=== PATIENT | male | born 1965 | race Caucasian/White ===

== ENCOUNTER 2022-08-05 10:46 | Inpatient (IN) | payer OTHER ==
[2022-08-05] MEDS ORDERED: CEFEPIME HCL/D5W 1 GM/50 ML BAG IVPB ONE (11:44)
[2022-08-05] MEDS ORDERED: VANCOMYCIN 1 GM in D5W (PRE-DOCKED) 1,000 MG/250 ML IVPB ONE (11:44)
[2022-08-05] MEDS ORDERED: VANCOMYCIN/WATER FOR INJ (PEG) 1,000 MG/200 ML BAG IVPB ONE (13:07)
[2022-08-05] MEDS ORDERED: CEFEPIME 1 GM/100 ML BAG IVPB ONE (13:08)
[2022-08-05 13:16] LABS: EPI CELLS >36 /uL (0-25.1); HYALINE CASTS 5 /uL (0-3.1); PH,URINE 5.5 (5.0-8.0); URINE APPEARANCE TURBID; URINE BACTERIA 29 /uL (0-1359); URINE BILIRUBIN 3+ (NEGATIVE); URINE COLOR DK YELLOW; URINE GLUCOSE (UA) NEGATIVE (NEGATIVE); URINE KETONE NEGATIVE (NEGATIVE); URINE LEUK ESTERASE 1+ (NEGATIVE); URINE NITRITE NEGATIVE (NEGATIVE); URINE PROTEIN 2+ (NEGATIVE); URINE UROBILINOGEN 0.2 mg/dL (0.2-1.0); URINE WBC 192 /uL (0-25.8)
[2022-08-05 13:40] LABS: URINE CRYSTALS NON /hpf; URINE RBC 139 /uL (0-23.9); YEAST NON (NEGATIVE)
[2022-08-05 13:41] LABS: VENOUS BASE EXCESS -0.4 mmol/L (-2-2); VENOUS O2 SATURATION 65.2 % (70-80); VENOUS PCO2 42.3 mmHg (38-52); VENOUS PH 7.383 (7.310-7.410)
[2022-08-05 13:44] LABS: BASO % 2.7 % (0-2.0); EOS % 1.9 % (0-4.5); HEMATOCRIT 23.6 % (35.4-49); HEMOGLOBIN 7.9 GM/dL (11.7-16.9); LYMPH % 9.8 % (8-40); MCH 32.3 pg (25.7-33.7); MCHC 33.6 g/dl (32.0-35.9); MEAN PLT VOLUME 7.5 fl (7.5-11.1); MONO % 9.6 % (3.8-10.2); PLATELET COUNT 237 10^3/uL (134-434); RBC 2.45 M/mm3 (4.00-5.60); RDW 19.1 % (11.9-15.9); WHITE BLOOD COUNT 12.8 K/mm3 (4.0-10.0)
[2022-08-05 13:50] LABS: INR 1.74 (0.83-1.09); PROTHROMBIN TIME (PATIENT) 20.1 SEC (9.7-13.0)
[2022-08-05 13:53] LABS: ACTIVATED PTT 41.3 SECONDS (25.2-36.5)
[2022-08-05 14:23] LABS: CHLORIDE 100 mmol/L (98-107); SODIUM 135 mmol/L (136-145)
[2022-08-05 14:25] LABS: CALCIUM 8.5 mg/dL (8.5-10.1)
[2022-08-05 14:26] LABS: ALBUMIN 1.3 g/dl (3.4-5.0); ANION GAP 11 MMOL/L (8-16); BLOOD UREA NITROGEN 56.3 mg/dL (7-18); CO2 25 mmol/L (21-32); GLUCOSE,RANDOM 79 mg/dL (74-106)
[2022-08-05 14:29] LABS: CREATININE 5.8 mg/dL (0.55-1.3); SGOT/AST 97 U/L (15-37); SGPT/ALT 60 U/L (13-61)
[2022-08-05 14:30] LABS: TOT PROT 6.2 g/dl (6.4-8.2)
[2022-08-05 14:32] LABS: ALK PHOS 105 U/L (45-117)
[2022-08-05 14:37] LABS: BILIRUBIN,TOTAL 16.9 mg/dL (0.2-1)
[2022-08-05 14:53] LABS: BILIRUBIN,DIRECT 13.6 mg/dL (0.0-0.2)
[2022-08-05] MEDS ORDERED: APIXABAN 5 MG TABLET ONE (21:59)
[2022-08-05] MEDS ORDERED: LACTULOSE 20 GM/30 ML UDC (FOR ORAL USE ONLY) ONE (21:59)
[2022-08-05] MEDS ORDERED: traMADol HCL 50 MG TABLET ONE (22:12)
[2022-08-05] MEDS: MIDODRINE HCL 5 MG TABLET PEG SCH (22:26)
[2022-08-05] MEDS: CHOLESTYRAMINE/SUCROSE 4 GM PACKET GT SCH (22:26)
[2022-08-05] MEDS: APIXABAN 5 MG TABLET PEG SCH (22:26)
[2022-08-05] MEDS: LACTULOSE 20 GM/30 ML UDC (FOR ORAL USE ONLY) PEG SCH (22:26)
[2022-08-05] MEDS: traMADol HCL 50 MG TABLET PEG SCH ×2 (22:26→22:27)
[2022-08-05] MEDS: RIFAXIMIN 550 MG TABLET GT SCH (22:27)
[2022-08-06 09:22] LABS: BASO % 0.5 % (0-2.0); EOS % 1.5 % (0-4.5); HEMATOCRIT 23.7 % (35.4-49); HEMOGLOBIN 7.9 GM/dL (11.7-16.9); LYMPH % 11.6 % (8-40); MCH 32.4 pg (25.7-33.7); MCHC 33.5 g/dl (32.0-35.9); MEAN CELL VOLUME 96.5 fl (80-96); MEAN PLT VOLUME 7.6 fl (7.5-11.1); MONO % 9.6 % (3.8-10.2); NEUT % 76.8 % (42.8-82.8); PLATELET COUNT 247 10^3/uL (134-434); RBC 2.45 M/mm3 (4.00-5.60); RDW 18.1 % (11.9-15.9); WHITE BLOOD COUNT 11.6 K/mm3 (4.0-10.0)
[2022-08-06 09:46] LABS: CHLORIDE 103 mmol/L (98-107); SODIUM 137 mmol/L (136-145)
[2022-08-06 09:53] LABS: CALCIUM 8.4 mg/dL (8.5-10.1)
[2022-08-06 09:54] LABS: ALBUMIN 1.3 g/dl (3.4-5.0); ANION GAP 9 MMOL/L (8-16); BLOOD UREA NITROGEN 68.9 mg/dL (7-18); CO2 25 mmol/L (21-32); MAGNESIUM 2.9 mg/dL (1.8-2.4)
[2022-08-06 09:55] LABS: SGPT/ALT 61 U/L (13-61)
[2022-08-06 09:56] LABS: CREATININE 6.6 mg/dL (0.55-1.3)
[2022-08-06 09:57] LABS: PHOSPHOROUS 5.5 mg/dL (2.5-4.9); SGOT/AST 98 U/L (15-37); TOT PROT 6.2 g/dl (6.4-8.2)
[2022-08-06 09:58] LABS: ALK PHOS 99 U/L (45-117)
[2022-08-06 10:04] LABS: BILIRUBIN,TOTAL 16.8 mg/dL (0.2-1); GLUCOSE,RANDOM 46 mg/dL (74-106)
[2022-08-06] MEDS ORDERED: traMADol HCL 50 MG TABLET ONE (10:45)
[2022-08-06] MEDS ORDERED: LACTULOSE 20 GM/30 ML UDC (FOR ORAL USE ONLY) ONE (10:46)
[2022-08-06] MEDS ORDERED: APIXABAN 5 MG TABLET ONE (10:46)
[2022-08-06] MEDS ORDERED: FOLIC ACID 1 MG TABLET (FP) ONE (10:46)
[2022-08-06] MEDS: LACTULOSE 20 GM/30 ML UDC (FOR ORAL USE ONLY) PEG SCH (10:50)
[2022-08-06] MEDS: APIXABAN 5 MG TABLET PEG SCH (10:50)
[2022-08-06] MEDS: FAMOTIDINE 40 MG/5 ML ORAL SUSPENSION PEG SCH (10:50)
[2022-08-06] MEDS: RIFAXIMIN 550 MG TABLET GT SCH ×2 (10:50→17:24)
[2022-08-06] MEDS: traMADol HCL 50 MG TABLET PEG SCH ×3 (10:50→18:05)
[2022-08-06] MEDS: MIDODRINE HCL 5 MG TABLET PEG SCH ×3 (10:50→18:04)
[2022-08-06] MEDS: FOLIC ACID 1 MG TABLET (FP) PEG SCH (10:50)
[2022-08-06] MEDS: CHOLESTYRAMINE/SUCROSE 4 GM PACKET GT SCH (10:50)
[2022-08-06] MEDS ORDERED: ALTEPLASE (CATHFLO) 2 MG/2 ML VIAL NR ONE (11:17)
[2022-08-06] MEDS ORDERED: ALTEPLASE (CATHFLO) 2 MG/2 ML VIAL ONE (11:24)
[2022-08-06] MEDS: ALBUMIN HUMAN 25% 12.5 GM/50 ML VIAL IV SCH ×2 (13:00→14:00)
[2022-08-06] MEDS ORDERED: EPOETIN ALFA-EPBX 10,000 UNIT/ML VIAL SQ ONE (14:00)
[2022-08-06] MEDS ORDERED: SODIUM CHLORIDE 250 ML IV PRN (14:00)
[2022-08-06] MEDS ORDERED: DEXTROSE 50%-WATER 25 GM/50 ML DISP.SYRIN ONE (16:33)
[2022-08-06] MEDS: CEFTRIAXONE 1 GM in DEXTROSE 5%-WATER - 50 ML IVPB SCH (18:04)
[2022-08-06] MEDS ORDERED: SODIUM CHLORIDE 250 ML IV STA (22:30)
[2022-08-06] MEDS: METOPROLOL TARTRATE 25 MG TABLET (FP) PO SCH (22:40)
[2022-08-07] MEDS: LACTULOSE 20 GM/30 ML UDC (FOR ORAL USE ONLY) PEG SCH ×3 (00:12→22:56)
[2022-08-07] MEDS: APIXABAN 5 MG TABLET PEG SCH ×3 (00:12→22:56)
[2022-08-07] MEDS: RIFAXIMIN 550 MG TABLET GT SCH ×4 (00:12→22:57)
[2022-08-07] MEDS ORDERED: ACETAMINOPHEN 325 MG TABLET (FP) PO PRN (00:13)
[2022-08-07] MEDS: traMADol HCL 50 MG TABLET PEG SCH ×4 (00:13→17:12)
[2022-08-07] MEDS: CHOLESTYRAMINE/SUCROSE 4 GM PACKET GT SCH ×3 (00:33→22:58)
[2022-08-07] MEDS: MIDODRINE HCL 5 MG TABLET PEG SCH ×3 (09:05→17:13)
[2022-08-07] MEDS: METOPROLOL TARTRATE 25 MG TABLET (FP) PO SCH ×3 (09:06→15:19)
[2022-08-07] MEDS: FAMOTIDINE 40 MG/5 ML ORAL SUSPENSION PEG SCH (09:12)
[2022-08-07] MEDS: CEFTRIAXONE 1 GM in DEXTROSE 5%-WATER - 50 ML IVPB SCH (09:13)
[2022-08-07] MEDS: FOLIC ACID 1 MG TABLET (FP) PEG SCH (09:16)
[2022-08-07 10:08] LABS: BASO % 0.4 % (0-2.0); EOS % 3.2 % (0-4.5); HEMATOCRIT 24.3 % (35.4-49); LYMPH % 14.2 % (8-40); MCH 32.2 pg (25.7-33.7); MCHC 32.9 g/dl (32.0-35.9); MEAN CELL VOLUME 97.9 fl (80-96); MEAN PLT VOLUME 7.5 fl (7.5-11.1); MONO % 10.9 % (3.8-10.2); NEUT % 71.3 % (42.8-82.8); PLATELET COUNT 241 10^3/uL (134-434); RBC 2.48 M/mm3 (4.00-5.60); RDW 18.7 % (11.9-15.9); WHITE BLOOD COUNT 10.7 K/mm3 (4.0-10.0)
[2022-08-07 10:31] LABS: CHLORIDE 101 mmol/L (98-107); SODIUM 138 mmol/L (136-145)
[2022-08-07 10:34] LABS: ANION GAP 11 MMOL/L (8-16); CALCIUM 8.5 mg/dL (8.5-10.1); CO2 26 mmol/L (21-32)
[2022-08-07 10:35] LABS: GLUCOSE,RANDOM 107 mg/dL (74-106); MAGNESIUM 2.6 mg/dL (1.8-2.4)
[2022-08-07 10:37] LABS: BILIRUBIN,DIRECT 13.8 mg/dL (0.0-0.2)
[2022-08-07 10:38] LABS: PHOSPHOROUS 3.2 mg/dL (2.5-4.9)
[2022-08-07 10:40] LABS: TOT PROT 6.4 g/dl (6.4-8.2)
[2022-08-07 10:41] LABS: ALK PHOS 102 U/L (45-117); SGOT/AST 84 U/L (15-37); SGPT/ALT 58 U/L (13-61)
[2022-08-07 10:43] LABS: ALBUMIN 1.6 g/dl (3.4-5.0); BLOOD UREA NITROGEN 41.9 mg/dL (7-18)
[2022-08-07] MEDS ORDERED: DEXTROSE 50%-WATER 25 GM/50 ML DISP.SYRIN IVPUSH ONE (17:18)
[2022-08-07] MEDS ORDERED: DEXTROSE 50%-WATER 25 GM/50 ML DISP.SYRIN ONE (17:31)
[2022-08-08] MEDS: METOPROLOL TARTRATE 25 MG TABLET (FP) PO SCH ×3 (02:27→22:35)
[2022-08-08] MEDS: traMADol HCL 50 MG TABLET PEG SCH ×5 (02:28→22:35)
[2022-08-08] MEDS: RIFAXIMIN 550 MG TABLET GT SCH ×3 (06:48→22:34)
[2022-08-08] MEDS: APIXABAN 5 MG TABLET PEG SCH ×2 (09:02→22:34)
[2022-08-08] MEDS: LACTULOSE 20 GM/30 ML UDC (FOR ORAL USE ONLY) PEG SCH ×2 (09:02→22:34)
[2022-08-08] MEDS: MIDODRINE HCL 5 MG TABLET PEG SCH ×3 (09:02→17:04)
[2022-08-08] MEDS: FOLIC ACID 1 MG TABLET (FP) PEG SCH (09:02)
[2022-08-08] MEDS: FAMOTIDINE 40 MG/5 ML ORAL SUSPENSION PEG SCH (09:03)
[2022-08-08] MEDS: CEFTRIAXONE 1 GM in DEXTROSE 5%-WATER - 50 ML IVPB SCH (10:11)
[2022-08-08] MEDS: CHOLESTYRAMINE/SUCROSE 4 GM PACKET GT SCH ×2 (10:12→22:39)
[2022-08-08 10:34] LABS: BASO % 0.4 % (0-2.0); EOS % 4.2 % (0-4.5); HEMOGLOBIN 8.5 GM/dL (11.7-16.9); LYMPH % 15.7 % (8-40); MCHC 32.7 g/dl (32.0-35.9); MEAN CELL VOLUME 97.8 fl (80-96); MEAN PLT VOLUME 7.9 fl (7.5-11.1); MONO % 10.7 % (3.8-10.2); PLATELET COUNT 304 10^3/uL (134-434); RBC 2.65 M/mm3 (4.00-5.60); RDW 17.7 % (11.9-15.9); WHITE BLOOD COUNT 12.2 K/mm3 (4.0-10.0)
[2022-08-08 10:45] LABS: CHLORIDE 98 mmol/L (98-107); SODIUM 136 mmol/L (136-145)
[2022-08-08 10:47] LABS: CALCIUM 8.7 mg/dL (8.5-10.1)
[2022-08-08 10:48] LABS: ALBUMIN 1.5 g/dl (3.4-5.0); ANION GAP 8 MMOL/L (8-16); BLOOD UREA NITROGEN 52.6 mg/dL (7-18); CO2 31 mmol/L (21-32); GLUCOSE,RANDOM 95 mg/dL (74-106)
[2022-08-08 10:51] LABS: CREATININE 6.1 mg/dL (0.55-1.3); SGOT/AST 78 U/L (15-37); SGPT/ALT 55 U/L (13-61)
[2022-08-08 10:53] LABS: TOT PROT 6.3 g/dl (6.4-8.2)
[2022-08-08 10:54] LABS: ALK PHOS 108 U/L (45-117)
[2022-08-08 10:55] LABS: BILIRUBIN,TOTAL 15.8 mg/dL (0.2-1)
[2022-08-09 08:59] LABS: BASO % 0.3 % (0-2.0); EOS % 3.3 % (0-4.5); HEMATOCRIT 23.7 % (35.4-49); HEMOGLOBIN 7.8 GM/dL (11.7-16.9); LYMPH % 12.7 % (8-40); MCH 32.1 pg (25.7-33.7); MEAN CELL VOLUME 97.4 fl (80-96); MEAN PLT VOLUME 7.5 fl (7.5-11.1); NEUT % 73.7 % (42.8-82.8); PLATELET COUNT 291 10^3/uL (134-434); RBC 2.43 M/mm3 (4.00-5.60); RDW 17.8 % (11.9-15.9); WHITE BLOOD COUNT 10.4 K/mm3 (4.0-10.0)
[2022-08-09 09:26] LABS: CALCIUM 8.3 mg/dL (8.5-10.1)
[2022-08-09 09:27] LABS: ALBUMIN 1.3 g/dl (3.4-5.0); BLOOD UREA NITROGEN 64.7 mg/dL (7-18)
[2022-08-09] MEDS ORDERED: SODIUM CHLORIDE 250 ML IV PRN (09:27)
[2022-08-09 09:30] LABS: BILIRUBIN,DIRECT 11.1 mg/dL (0.0-0.2); CREATININE 6.9 mg/dL (0.55-1.3)
[2022-08-09 09:32] LABS: BILIRUBIN,TOTAL 13.8 mg/dL (0.2-1); TOT PROT 5.8 g/dl (6.4-8.2)
[2022-08-09 10:04] LABS: INR 2.34 (0.83-1.09); PROTHROMBIN TIME (PATIENT) 27.1 SEC (9.7-13.0)
[2022-08-09] MEDS ORDERED: EPOETIN ALFA-EPBX 10,000 UNIT/ML VIAL IVPUSH ONE (11:00)
[2022-08-09] MEDS: LACTULOSE 20 GM/30 ML UDC (FOR ORAL USE ONLY) PEG SCH ×2 (11:10→22:31)
[2022-08-09] MEDS: METOPROLOL TARTRATE 25 MG TABLET (FP) PO SCH ×2 (11:11→22:32)
[2022-08-09] MEDS: traMADol HCL 50 MG TABLET PEG SCH ×4 (11:11→22:32)
[2022-08-09] MEDS: APIXABAN 5 MG TABLET PEG SCH ×2 (11:12→22:34)
[2022-08-09] MEDS: MIDODRINE HCL 5 MG TABLET PEG SCH ×3 (11:12→18:38)
[2022-08-09] MEDS: FAMOTIDINE 40 MG/5 ML ORAL SUSPENSION PEG SCH (11:12)
[2022-08-09] MEDS: FOLIC ACID 1 MG TABLET (FP) PEG SCH (11:12)
[2022-08-09] MEDS: CHOLESTYRAMINE/SUCROSE 4 GM PACKET GT SCH ×2 (11:13→22:34)
[2022-08-09] MEDS: RIFAXIMIN 550 MG TABLET GT SCH ×3 (11:58→22:32)
[2022-08-09] MEDS: ALBUMIN HUMAN 25% 12.5 GM/50 ML VIAL IV SCH ×7 (12:48→18:34)
[2022-08-10] MEDS: RIFAXIMIN 550 MG TABLET GT SCH ×2 (06:43→14:26)
[2022-08-10 09:32] LABS: BASO % 0.3 % (0-2.0); EOS % 3.8 % (0-4.5); HEMOGLOBIN 8.4 GM/dL (11.7-16.9); LYMPH % 13.4 % (8-40); MCH 32.1 pg (25.7-33.7); MCHC 32.5 g/dl (32.0-35.9); MEAN CELL VOLUME 98.9 fl (80-96); MEAN PLT VOLUME 7.9 fl (7.5-11.1); NEUT % 72.5 % (42.8-82.8); PLATELET COUNT 313 10^3/uL (134-434); RBC 2.63 M/mm3 (4.00-5.60); RDW 17.9 % (11.9-15.9); WHITE BLOOD COUNT 11.6 K/mm3 (4.0-10.0)
[2022-08-10 09:44] LABS: INR 2.34 (0.83-1.09); PROTHROMBIN TIME (PATIENT) 27.1 SEC (9.7-13.0)
[2022-08-10] MEDS: APIXABAN 5 MG TABLET PEG SCH (09:47)
[2022-08-10] MEDS: traMADol HCL 50 MG TABLET PEG SCH ×3 (09:47→17:32)
[2022-08-10] MEDS: FOLIC ACID 1 MG TABLET (FP) PEG SCH (09:47)
[2022-08-10] MEDS: MIDODRINE HCL 5 MG TABLET PEG SCH ×3 (09:47→17:32)
[2022-08-10] MEDS: LACTULOSE 20 GM/30 ML UDC (FOR ORAL USE ONLY) PEG SCH (09:49)
[2022-08-10] MEDS: FAMOTIDINE 40 MG/5 ML ORAL SUSPENSION PEG SCH (09:50)
[2022-08-10] MEDS: METOPROLOL TARTRATE 25 MG TABLET (FP) PO SCH (09:50)
[2022-08-10] MEDS: CHOLESTYRAMINE/SUCROSE 4 GM PACKET GT SCH (09:51)
[2022-08-10 10:03] LABS: BLOOD UREA NITROGEN 49.3 mg/dL (7-18); CALCIUM 8.6 mg/dL (8.5-10.1)
[2022-08-10 10:04] LABS: MAGNESIUM 2.9 mg/dL (1.8-2.4)
[2022-08-10 10:05] LABS: CREATININE 5.9 mg/dL (0.55-1.3)
[2022-08-10 10:06] LABS: BILIRUBIN,DIRECT 11.3 mg/dL (0.0-0.2)
[2022-08-10 10:07] LABS: BILIRUBIN,TOTAL 14.4 mg/dL (0.2-1); TOT PROT 6.2 g/dl (6.4-8.2)
[2022-08-10 10:22] LABS: ALBUMIN 1.8 g/dl (3.4-5.0)
[2022-08-11] MEDS: traMADol HCL 50 MG TABLET PEG SCH ×3 (00:39→13:55)
[2022-08-11] MEDS: CHOLESTYRAMINE/SUCROSE 4 GM PACKET GT SCH ×4 (00:39→21:22)
[2022-08-11] MEDS: METOPROLOL TARTRATE 25 MG TABLET (FP) PO SCH ×4 (00:39→22:35)
[2022-08-11] MEDS: RIFAXIMIN 550 MG TABLET GT SCH ×4 (00:39→21:21)
[2022-08-11] MEDS: APIXABAN 5 MG TABLET PEG SCH ×4 (00:39→21:20)
[2022-08-11] MEDS: LACTULOSE 20 GM/30 ML UDC (FOR ORAL USE ONLY) PEG SCH ×4 (00:39→21:20)
[2022-08-11] MEDS: ALBUMIN HUMAN 25% 12.5 GM/50 ML VIAL IV SCH ×4 (09:30→11:41)
[2022-08-11] MEDS ORDERED: EPOETIN ALFA-EPBX 10,000 UNIT/ML VIAL IVPUSH ONE (10:00)
[2022-08-11] MEDS ORDERED: SODIUM CHLORIDE 250 ML IV PRN (10:00)
[2022-08-11] MEDS: MIDODRINE HCL 5 MG TABLET PEG SCH ×4 (10:37→18:30)
[2022-08-11] MEDS: FAMOTIDINE 40 MG/5 ML ORAL SUSPENSION PEG SCH (10:37)
[2022-08-11] MEDS: FOLIC ACID 1 MG TABLET (FP) PEG SCH ×2 (10:37→12:59)
[2022-08-12] MEDS: RIFAXIMIN 550 MG TABLET GT SCH (05:33)
[2022-08-12] MEDS ORDERED: INSULIN (LEVEMIR) 100 UNITS/ML UNITS SQ ONE (07:00)
[2022-08-12] MEDS: APIXABAN 5 MG TABLET PEG SCH ×2 (10:34→22:52)
[2022-08-12] MEDS: FOLIC ACID 1 MG TABLET (FP) PEG SCH (10:34)
[2022-08-12] MEDS: MIDODRINE HCL 5 MG TABLET PEG SCH (10:34)
[2022-08-12] MEDS: FAMOTIDINE 40 MG/5 ML ORAL SUSPENSION PEG SCH (10:35)
[2022-08-12] MEDS: LACTULOSE 20 GM/30 ML UDC (FOR ORAL USE ONLY) PEG SCH (10:36)
[2022-08-12] MEDS: CHOLESTYRAMINE/SUCROSE 4 GM PACKET GT SCH (10:37)
[2022-08-12] MEDS: METOPROLOL TARTRATE 25 MG TABLET (FP) PO SCH (10:41)
[2022-08-12] MEDS: LIDOCAINE PATCH REMOVAL MC SCH (10:42)
[2022-08-12 11:17] LABS: HEMATOCRIT 25.8 % (35.4-49); HEMOGLOBIN 8.5 GM/dL (11.7-16.9); MCH 32.9 pg (25.7-33.7); MEAN CELL VOLUME 99.4 fl (80-96); MEAN PLT VOLUME 7.9 fl (7.5-11.1); PLATELET COUNT 350 10^3/uL (134-434); RDW 18.9 % (11.9-15.9); WHITE BLOOD COUNT 12.1 K/mm3 (4.0-10.0)
[2022-08-12 11:20] LABS: INR 2.62 (0.83-1.09); PROTHROMBIN TIME (PATIENT) 30.4 SEC (9.7-13.0)
[2022-08-12 11:49] LABS: CALCIUM 8.3 mg/dL (8.5-10.1)
[2022-08-12 11:50] LABS: BLOOD UREA NITROGEN 43.2 mg/dL (7-18); MAGNESIUM 2.6 mg/dL (1.8-2.4)
[2022-08-12 11:53] LABS: CREATININE 5.5 mg/dL (0.55-1.3)
[2022-08-12 11:54] LABS: BILIRUBIN,TOTAL 14.4 mg/dL (0.2-1)
[2022-08-12 11:55] LABS: TOT PROT 6.7 g/dl (6.4-8.2)
[2022-08-12] MEDS ORDERED: PHYTONADIONE 5 MG TABLET PO ONE (12:07)
[2022-08-12 13:13] LABS: ANISOCYTOSIS 2+; MACROCYTOSIS 1+
[2022-08-12] MEDS: RIFAXIMIN 550 MG TABLET PO SCH ×2 (14:22→22:01)
[2022-08-12] MEDS: MIDODRINE HCL 5 MG TABLET PO SCH ×2 (14:22→17:36)
[2022-08-12] MEDS: metoPROLOL SUCCINATE 25 MG TAB.SR.24H (FP) PO SCH (17:36)
[2022-08-12] MEDS: LACTULOSE 20 GM/30 ML UDC (FOR ORAL USE ONLY) PO SCH (21:59)
[2022-08-12] MEDS: CHOLESTYRAMINE/SUCROSE 4 GM PACKET PO SCH (22:00)
[2022-08-12] MEDS ORDERED: APIXABAN 5 MG TABLET PO SCH (22:19)
[2022-08-12] MEDS: APIXABAN 5 MG TABLET PO SCH (22:31)
[2022-08-12] MEDS: LIDOCAINE 5% TOPICAL PATCH TP SCH (22:32)
[2022-08-13] MEDS: RIFAXIMIN 550 MG TABLET PO SCH ×3 (07:03→22:01)
[2022-08-13 09:51] LABS: INR 2.23 (0.83-1.09); PROTHROMBIN TIME (PATIENT) 25.8 SEC (9.7-13.0)
[2022-08-13] MEDS: LACTULOSE 20 GM/30 ML UDC (FOR ORAL USE ONLY) PO SCH ×2 (10:27→22:01)
[2022-08-13] MEDS: FAMOTIDINE 20 MG TABLET PO SCH (10:28)
[2022-08-13] MEDS: APIXABAN 5 MG TABLET PO SCH ×2 (10:28→22:01)
[2022-08-13] MEDS: MIDODRINE HCL 5 MG TABLET PO SCH ×3 (10:28→17:46)
[2022-08-13] MEDS: FOLIC ACID 1 MG TABLET (FP) PO SCH (10:28)
[2022-08-13] MEDS: CHOLESTYRAMINE/SUCROSE 4 GM PACKET PO SCH ×2 (10:29→22:02)
[2022-08-13] MEDS: metoPROLOL SUCCINATE 25 MG TAB.SR.24H (FP) PO SCH (10:30)
[2022-08-13] MEDS: LIDOCAINE PATCH REMOVAL MC SCH (15:10)
[2022-08-13] MEDS ORDERED: SODIUM CHLORIDE 250 ML IV PRN (15:44)
[2022-08-13] MEDS: ALBUMIN HUMAN 25% 12.5 GM/50 ML VIAL IV SCH ×4 (18:35→19:52)
[2022-08-13] MEDS: LIDOCAINE 5% TOPICAL PATCH TP SCH (22:03)
[2022-08-14] MEDS: RIFAXIMIN 550 MG TABLET PO SCH ×3 (06:25→22:50)
[2022-08-14] MEDS: LACTULOSE 20 GM/30 ML UDC (FOR ORAL USE ONLY) PO SCH ×2 (09:49→22:50)
[2022-08-14] MEDS: FOLIC ACID 1 MG TABLET (FP) PO SCH (09:51)
[2022-08-14] MEDS: APIXABAN 5 MG TABLET PO SCH ×2 (09:51→22:50)
[2022-08-14] MEDS: FAMOTIDINE 20 MG TABLET PO SCH (09:51)
[2022-08-14] MEDS: CHOLESTYRAMINE/SUCROSE 4 GM PACKET PO SCH ×2 (09:52→22:51)
[2022-08-14] MEDS: MIDODRINE HCL 5 MG TABLET PO SCH ×3 (09:52→17:21)
[2022-08-14] MEDS: metoPROLOL SUCCINATE 25 MG TAB.SR.24H (FP) PO SCH (09:53)
[2022-08-14] MEDS: LIDOCAINE PATCH REMOVAL MC SCH (10:03)
[2022-08-14] MEDS: LIDOCAINE 5% TOPICAL PATCH TP SCH (22:50)
[2022-08-15] MEDS: RIFAXIMIN 550 MG TABLET PO SCH ×4 (06:35→22:26)
[2022-08-15] MEDS: LACTULOSE 20 GM/30 ML UDC (FOR ORAL USE ONLY) PO SCH ×3 (09:36→22:26)
[2022-08-15] MEDS: MIDODRINE HCL 5 MG TABLET PO SCH ×5 (09:37→18:25)
[2022-08-15] MEDS: FOLIC ACID 1 MG TABLET (FP) PO SCH ×2 (09:37→11:04)
[2022-08-15] MEDS: APIXABAN 5 MG TABLET PO SCH ×4 (09:37→22:26)
[2022-08-15 10:04] LABS: BASO % 2.7 % (0-2.0); EOS % 4.1 % (0-4.5); HEMATOCRIT 25.6 % (35.4-49); HEMOGLOBIN 8.5 GM/dL (11.7-16.9); LYMPH % 17.1 % (8-40); MCH 33.2 pg (25.7-33.7); MCHC 33.3 g/dl (32.0-35.9); MEAN CELL VOLUME 99.6 fl (80-96); MEAN PLT VOLUME 7.6 fl (7.5-11.1); MONO % 12.6 % (3.8-10.2); NEUT % 63.5 % (42.8-82.8); PLATELET COUNT 299 10^3/uL (134-434); RBC 2.57 M/mm3 (4.00-5.60); RDW 20.8 % (11.9-15.9); WHITE BLOOD COUNT 8.7 K/mm3 (4.0-10.0)
[2022-08-15 10:39] LABS: CALCIUM 8.4 mg/dL (8.5-10.1)
[2022-08-15 10:40] LABS: ALBUMIN 2.2 g/dl (3.4-5.0); BILIRUBIN,DIRECT 10.6 mg/dL (0.0-0.2); BLOOD UREA NITROGEN 50.8 mg/dL (7-18)
[2022-08-15 10:43] LABS: CREATININE 6.6 mg/dL (0.55-1.3)
[2022-08-15 10:44] LABS: BILIRUBIN,TOTAL 13.7 mg/dL (0.2-1)
[2022-08-15 10:46] LABS: TOT PROT 6.1 g/dl (6.4-8.2)
[2022-08-15] MEDS: LIDOCAINE PATCH REMOVAL MC SCH (10:58)
[2022-08-15] MEDS: CHOLESTYRAMINE/SUCROSE 4 GM PACKET PO SCH ×2 (10:59→22:27)
[2022-08-15] MEDS: FAMOTIDINE 20 MG TABLET PO SCH (10:59)
[2022-08-15] MEDS: metoPROLOL SUCCINATE 25 MG TAB.SR.24H (FP) PO SCH (10:59)
[2022-08-15] MEDS ORDERED: SODIUM CHLORIDE 250 ML IV PRN (11:17)
[2022-08-15 16:13] VITALS: BMI 35.4
[2022-08-15] MEDS: LIDOCAINE 5% TOPICAL PATCH TP SCH (22:27)
[2022-08-16] MEDS: RIFAXIMIN 550 MG TABLET PO SCH ×3 (06:00→22:35)
[2022-08-16] MEDS ORDERED: EPOETIN ALFA-EPBX 4,000 UNIT/ML VIAL IVPUSH ONE (08:45)
[2022-08-16 09:58] LABS: CHLORIDE 102 mmol/L (98-107); SODIUM 141 mmol/L (136-145)
[2022-08-16] MEDS: LIDOCAINE PATCH REMOVAL MC SCH (10:00)
[2022-08-16] MEDS: ALBUMIN HUMAN 25% 12.5 GM/50 ML VIAL IV SCH ×3 (10:03→11:43)
[2022-08-16 10:18] LABS: ALBUMIN 2.2 g/dl (3.4-5.0); ALK PHOS 119 U/L (45-117); ANION GAP 12 MMOL/L (8-16); BLOOD UREA NITROGEN 62.4 mg/dL (7-18); CALCIUM 8.4 mg/dL (8.5-10.1); CO2 27 mmol/L (21-32); CREATININE 7.5 mg/dL (0.55-1.3); GLUCOSE,RANDOM 99 mg/dL (74-106); MAGNESIUM 2.9 mg/dL (1.8-2.4); SGOT/AST 76 U/L (15-37); SGPT/ALT 51 U/L (13-61); TOT PROT 6.5 g/dl (6.4-8.2)
[2022-08-16] MEDS: LACTULOSE 20 GM/30 ML UDC (FOR ORAL USE ONLY) PO SCH ×2 (12:04→22:41)
[2022-08-16] MEDS: FAMOTIDINE 20 MG TABLET PO SCH (12:05)
[2022-08-16] MEDS: FOLIC ACID 1 MG TABLET (FP) PO SCH (12:05)
[2022-08-16] MEDS: APIXABAN 5 MG TABLET PO SCH ×2 (12:05→22:35)
[2022-08-16] MEDS: MIDODRINE HCL 5 MG TABLET PO SCH ×3 (12:06→17:13)
[2022-08-16] MEDS: metoPROLOL SUCCINATE 25 MG TAB.SR.24H (FP) PO SCH (12:06)
[2022-08-16] MEDS: CHOLESTYRAMINE/SUCROSE 4 GM PACKET PO SCH ×2 (12:06→22:40)
[2022-08-16] MEDS: LIDOCAINE 5% TOPICAL PATCH TP SCH ×2 (14:17→22:43)
[2022-08-17] MEDS: RIFAXIMIN 550 MG TABLET PO SCH ×3 (06:29→21:41)
[2022-08-17 09:08] LABS: ALBUMIN 2.1 g/dl (3.4-5.0); CALCIUM 8.2 mg/dL (8.5-10.1); MAGNESIUM 2.5 mg/dL (1.8-2.4)
[2022-08-17 09:12] LABS: CREATININE 5.5 mg/dL (0.55-1.3)
[2022-08-17] MEDS: LACTULOSE 20 GM/30 ML UDC (FOR ORAL USE ONLY) PO SCH ×2 (09:49→21:41)
[2022-08-17] MEDS: MIDODRINE HCL 5 MG TABLET PO SCH ×3 (09:49→17:07)
[2022-08-17] MEDS: metoPROLOL SUCCINATE 25 MG TAB.SR.24H (FP) PO SCH (09:49)
[2022-08-17] MEDS: LIDOCAINE PATCH REMOVAL MC SCH (09:50)
[2022-08-17] MEDS: FAMOTIDINE 20 MG TABLET PO SCH (09:50)
[2022-08-17] MEDS: APIXABAN 5 MG TABLET PO SCH ×2 (09:50→21:41)
[2022-08-17] MEDS: FOLIC ACID 1 MG TABLET (FP) PO SCH (09:50)
[2022-08-17] MEDS: CHOLESTYRAMINE/SUCROSE 4 GM PACKET PO SCH ×2 (09:51→21:41)
[2022-08-17] MEDS: LIDOCAINE 5% TOPICAL PATCH TP SCH (21:40)
[2022-08-17 22:23] VITALS: RESP 18
[2022-08-18] MEDS: RIFAXIMIN 550 MG TABLET PO SCH ×3 (06:12→21:20)
[2022-08-18] MEDS ORDERED: PHYTONADIONE 10 MG/1 ML AMP IVPB ONE (09:01)
[2022-08-18 10:30] LABS: INR 2.39 (0.83-1.09); PROTHROMBIN TIME (PATIENT) 27.7 SEC (9.7-13.0)
[2022-08-18] MEDS: FOLIC ACID 1 MG TABLET (FP) PO SCH (11:00)
[2022-08-18] MEDS: LACTULOSE 20 GM/30 ML UDC (FOR ORAL USE ONLY) PO SCH ×2 (11:00→21:21)
[2022-08-18] MEDS: APIXABAN 5 MG TABLET PO SCH ×2 (11:00→21:20)
[2022-08-18 11:01] LABS: BASO % 2.4 % (0-2.0); EOS % 4.4 % (0-4.5); HEMATOCRIT 29.8 % (35.4-49); HEMOGLOBIN 9.6 GM/dL (11.7-16.9); MCH 32.2 pg (25.7-33.7); MCHC 32.3 g/dl (32.0-35.9); MEAN CELL VOLUME 99.8 fl (80-96); MEAN PLT VOLUME 8.3 fl (7.5-11.1); MONO % 10.9 % (3.8-10.2); NEUT % 63.3 % (42.8-82.8); PLATELET COUNT 282 10^3/uL (134-434); RBC 2.99 M/mm3 (4.00-5.60); WHITE BLOOD COUNT 9.1 K/mm3 (4.0-10.0)
[2022-08-18] MEDS: MIDODRINE HCL 5 MG TABLET PO SCH ×4 (11:01→17:26)
[2022-08-18] MEDS: LIDOCAINE PATCH REMOVAL MC SCH (11:01)
[2022-08-18] MEDS: metoPROLOL SUCCINATE 25 MG TAB.SR.24H (FP) PO SCH (11:02)
[2022-08-18] MEDS: CHOLESTYRAMINE/SUCROSE 4 GM PACKET PO SCH ×2 (11:02→21:45)
[2022-08-18] MEDS ORDERED: SODIUM CHLORIDE 250 ML IV PRN (11:06)
[2022-08-18 11:13] LABS: BLOOD UREA NITROGEN 49.2 mg/dL (7-18); CALCIUM 8.3 mg/dL (8.5-10.1); MAGNESIUM 2.7 mg/dL (1.8-2.4)
[2022-08-18 11:15] LABS: CREATININE 6.4 mg/dL (0.55-1.3)
[2022-08-18] MEDS ORDERED: EPOETIN ALFA-EPBX 10,000 UNIT/ML VIAL IVPUSH ONE (11:15)
[2022-08-18 11:17] LABS: BILIRUBIN,TOTAL 12.9 mg/dL (0.2-1); TOT PROT 6.3 g/dl (6.4-8.2)
[2022-08-18 19:56] VITALS: BP 121/62; PULSE 57; TEMP 98.1
[2022-08-18] MEDS: LIDOCAINE 5% TOPICAL PATCH TP SCH (21:46)
[2022-08-18] MEDS ORDERED: SPIRONOLACTONE 25 MG TABLET PO SCH (22:00)
== END 2022-08-18 23:00 | DRG 308 ==
LOC: JER 10:46 → JERBED 14:32 → J8W 08-06 17:05
PROVIDERS: ADMIT Internal Medicine; ATTEND Nurse Practitioner Family
PROC: 5A1D70Z Performance of Urinary Filtration, Intermittent, Less than 6 Hours Per Day (ICD-10-PCS; principal; 2022-08-06)
PROC: 5A1D70Z Performance of Urinary Filtration, Intermittent, Less than 6 Hours Per Day (ICD-10-PCS; 2022-08-09)
PROC: 5A1D70Z Performance of Urinary Filtration, Intermittent, Less than 6 Hours Per Day (ICD-10-PCS; 2022-08-11)
PROC: 5A1D70Z Performance of Urinary Filtration, Intermittent, Less than 6 Hours Per Day (ICD-10-PCS; 2022-08-13)
PROC: 5A1D70Z Performance of Urinary Filtration, Intermittent, Less than 6 Hours Per Day (ICD-10-PCS; 2022-08-16)
PROC: 5A1D70Z Performance of Urinary Filtration, Intermittent, Less than 6 Hours Per Day (ICD-10-PCS; 2022-08-18)
DX: I48.92 Unspecified atrial flutter (principal); K83.1 Obstruction of bile duct; N18.6 End stage renal disease; N17.9 Acute kidney failure, unspecified; I13.2 Hypertensive heart and chronic kidney disease with heart failure and with stage 5 chronic kidney disease, or end stage renal disease; I50.22 Chronic systolic (congestive) heart failure; N39.0 Urinary tract infection, site not specified; S90.32XA Contusion of left foot, initial encounter; K76.82 Hepatic encephalopathy; R00.0 Tachycardia, unspecified; E80.6 Other disorders of bilirubin metabolism; D72.829 Elevated white blood cell count, unspecified; E66.9 Obesity, unspecified; Z68.35 Body mass index [BMI] 35.0-35.9, adult; M54.50 Low back pain, unspecified; R79.89 Other specified abnormal findings of blood chemistry; K76.0 Fatty (change of) liver, not elsewhere classified; D64.9 Anemia, unspecified; Z43.0 Encounter for attention to tracheostomy; F41.8 Other specified anxiety disorders; K70.11 Alcoholic hepatitis with ascites; E11.22 Type 2 diabetes mellitus with diabetic chronic kidney disease; Z99.2 Dependence on renal dialysis
CPT/HCPCS: 0241U-QW; 36415; 71045-TC-FY; 73630-TC-LT; 73700-TC-RT; 74230-TC-FY; 76700-TC; 76705-TC; 76882-TC-RT-FY; 80048; 80053; 80076; 81003; 82105; 82140; 82248; 82550; 82553; 82803; 82962; 83036; 83605; 83735; 84100; 84484; 85025; 85610; 85730; 86704; 86705; 86707; 86803; 86850; 86900; 86901; 87040; 87086; 87340; 87350; 92611-GN; 93005; 93010; 93306-TC; 93970-TC; 97116-GP; 97162-GP; 99285-25; C9803-CS; J2997; P9047; Q5106; U0003; U0005

== ENCOUNTER 2022-08-24 20:35 | Inpatient (IN) | payer OTHER ==
[2022-08-24 22:15] LABS: BASO % 0.6 % (0-2.0); EOS % 2.7 % (0-4.5); HEMATOCRIT 29.1 % (35.4-49); HEMOGLOBIN 9.6 GM/dL (11.7-16.9); LYMPH % 19.7 % (8-40); MCH 31.6 pg (25.7-33.7); MCHC 32.9 g/dl (32.0-35.9); MEAN CELL VOLUME 95.9 fl (80-96); MEAN PLT VOLUME 9.1 fl (7.5-11.1); MONO % 10.3 % (3.8-10.2); NEUT % 66.7 % (42.8-82.8); PLATELET COUNT 251 10^3/uL (134-434); RBC 3.03 M/mm3 (4.00-5.60); RDW 17.5 % (11.9-15.9); WHITE BLOOD COUNT 9.9 K/mm3 (4.0-10.0)
[2022-08-24 22:20] LABS: INR 2.32 (0.83-1.09); PROTHROMBIN TIME (PATIENT) 26.9 SEC (9.7-13.0)
[2022-08-24 22:23] LABS: ACTIVATED PTT 47.8 SECONDS (25.2-36.5)
[2022-08-24 22:37] LABS: ALBUMIN 1.8 g/dl (3.4-5.0); BLOOD UREA NITROGEN 43.9 mg/dL (7-18); CALCIUM 8.2 mg/dL (8.5-10.1)
[2022-08-24 22:40] LABS: CREATININE 7.2 mg/dL (0.55-1.3)
[2022-08-24 22:50] LABS: BILIRUBIN,TOTAL 12.2 mg/dL (0.2-1)
[2022-08-25] MEDS ORDERED: PHYTONADIONE 10 MG/1 ML AMP SQ ONE (08:56)
[2022-08-25] MEDS: MULTIVITAMINS (DAILY MVI) TABLET (FP) PO SCH (09:49)
[2022-08-25] MEDS: FOLIC ACID 1 MG TABLET (FP) PO SCH (09:49)
[2022-08-25] MEDS: THIAMINE HCL 100 MG TABLET (FP) PO SCH (09:49)
[2022-08-25] MEDS: LACTULOSE 20 GM/30 ML UDC (FOR ORAL USE ONLY) PO SCH ×2 (09:49→21:12)
[2022-08-25] MEDS: SPIRONOLACTONE 25 MG TABLET PO SCH ×2 (09:49→21:13)
[2022-08-25] MEDS ORDERED: FAMOTIDINE 10 MG TABLET PEG SCH (10:00)
[2022-08-25 10:55] LABS: INR 2.3 (0.83-1.09); PROTHROMBIN TIME (PATIENT) 26.7 SEC (9.7-13.0)
[2022-08-25] MEDS ORDERED: PIPERACILLIN/TAZOB 3.375 GM 3.375 GM in DEXTROSE 5%-WATER - 50 ML IVPB SCH (11:00)
[2022-08-25] MEDS ORDERED: PIPERACILLIN/TAZOB 2.25 GM 2.25 GM in DEXTROSE 5%-WATER - 50 ML IVPB SCH ×2 (11:15→11:30)
[2022-08-25] MEDS ORDERED: ACETYLCYSTEINE IVPB ONE ×3 (12:30→17:30)
[2022-08-25] MEDS ORDERED: WATER IVPB ONE ×3 (12:30→17:30)
[2022-08-25] MEDS ORDERED: DEXTROSE 5% IVPB ONE ×3 (12:30→17:30)
[2022-08-25] MEDS ORDERED: ACETYLCYSTEINE INJECTION 20% 5,000 MG in DEXTROSE 5%-WATER - 500 ML IVPB ONE ×3 (13:15→19:30)
[2022-08-25] MEDS: CALCIUM ACETATE 667 MG CAPSULE (FP) PEG SCH ×2 (13:48→21:13)
[2022-08-25] MEDS: ACETYLCYSTEINE INJECTION 20% 15,000 MG in DEXTROSE 5%-WATER - 250 ML IVPB ONE ×2 (13:48→17:49)
[2022-08-25] MEDS ORDERED: SODIUM CHLORIDE 250 ML IV PRN (13:55)
[2022-08-25] MEDS ORDERED: EPOETIN ALFA-EPBX 4,000 UNIT/ML VIAL SQ ONE (14:00)
[2022-08-25] MEDS: RIFAXIMIN 550 MG TABLET GT SCH ×2 (14:56→21:13)
[2022-08-25] MEDS: MIDODRINE HCL 5 MG TABLET PEG SCH ×2 (14:56→21:13)
[2022-08-25] MEDS: ALBUMIN HUMAN 25% 12.5 GM/50 ML VIAL IV SCH ×3 (16:53→17:35)
[2022-08-25] MEDS ORDERED: ACETYLCYSTEINE INJECTION 20% 10,000 MG in DEXTROSE 5%-WATER - 1,000 ML IVPB ONE ×3 (18:00→23:30)
[2022-08-25] MEDS ORDERED: ACETYLCYSTEINE INJECTION 20% 15,000 MG in DEXTROSE 5%-WATER - 250 ML IVPB ONE (18:00)
[2022-08-25] MEDS: PIPERACILLIN/TAZOB 2.25 GM 2.25 GM in DEXTROSE 5%-WATER - 50 ML IVPB SCH (18:54)
[2022-08-26] MEDS ORDERED: MELATONIN 5 MG TABLETS PO ONE ×2 (00:58→23:39)
[2022-08-26] MEDS: PIPERACILLIN/TAZOB 2.25 GM 2.25 GM in DEXTROSE 5%-WATER - 50 ML IVPB SCH ×3 (01:27→17:59)
[2022-08-26] MEDS: MIDODRINE HCL 5 MG TABLET PEG SCH ×2 (06:08)
[2022-08-26] MEDS: CALCIUM ACETATE 667 MG CAPSULE (FP) PEG SCH (06:08)
[2022-08-26] MEDS: RIFAXIMIN 550 MG TABLET GT SCH ×2 (06:08)
[2022-08-26] MEDS ORDERED: CALCIUM ACETATE 667 MG CAPSULE (FP) PEG SCH ×2 (07:13→12:00)
[2022-08-26] MEDS ORDERED: SODIUM CHLORIDE 250 ML IV PRN (10:10)
[2022-08-26] MEDS: ALBUMIN HUMAN 25% 12.5 GM/50 ML VIAL IV SCH ×2 (11:15→11:51)
[2022-08-26] MEDS ORDERED: EPOETIN ALFA-EPBX 4,000 UNIT/ML VIAL IVPUSH ONE (11:15)
[2022-08-26 12:02] LABS: BASO % 0.5 % (0-2.0); EOS % 3.2 % (0-4.5); HEMOGLOBIN 8.6 GM/dL (11.7-16.9); LYMPH % 17.2 % (8-40); MCH 30.4 pg (25.7-33.7); MCHC 31.6 g/dl (32.0-35.9); MEAN PLT VOLUME 7.5 fl (7.5-11.1); MONO % 9.3 % (3.8-10.2); NEUT % 69.8 % (42.8-82.8); PLATELET COUNT 97 10^3/uL (134-434); RBC 2.82 M/mm3 (4.00-5.60); RDW 16.2 % (11.9-15.9); WHITE BLOOD COUNT 8.6 K/mm3 (4.0-10.0)
[2022-08-26 12:13] LABS: INR 1.92 (0.83-1.09); PROTHROMBIN TIME (PATIENT) 22.2 SEC (9.7-13.0)
[2022-08-26 12:35] LABS: ALBUMIN 1.6 g/dl (3.4-5.0); BLOOD UREA NITROGEN 30.8 mg/dL (7-18); CALCIUM 8.5 mg/dL (8.5-10.1); PHOSPHOROUS 2.9 mg/dL (2.5-4.9); TOT PROT 5.8 g/dl (6.4-8.2)
[2022-08-26 12:37] LABS: BILIRUBIN,TOTAL 11.4 mg/dL (0.2-1)
[2022-08-26 12:38] LABS: CREATININE 5.4 mg/dL (0.55-1.3); MAGNESIUM 2.3 mg/dL (1.8-2.4)
[2022-08-26] MEDS: SPIRONOLACTONE 25 MG TABLET PO SCH ×2 (12:53→21:09)
[2022-08-26] MEDS: MULTIVITAMINS (DAILY MVI) TABLET (FP) PO SCH (12:53)
[2022-08-26] MEDS: LACTULOSE 20 GM/30 ML UDC (FOR ORAL USE ONLY) PO SCH ×2 (12:54→21:09)
[2022-08-26] MEDS: FOLIC ACID 1 MG TABLET (FP) PO SCH (12:54)
[2022-08-26] MEDS: THIAMINE HCL 100 MG TABLET (FP) PO SCH (12:54)
[2022-08-26] MEDS ORDERED: PHYTONADIONE 10 MG/1 ML AMP IVPB ONE (13:00)
[2022-08-26] MEDS: MIDODRINE HCL 5 MG TABLET PO SCH ×2 (14:21→18:00)
[2022-08-26] MEDS: RIFAXIMIN 550 MG TABLET PO SCH ×2 (14:21→21:09)
[2022-08-26] MEDS: CALCIUM ACETATE 667 MG CAPSULE (FP) PO SCH (16:32)
[2022-08-27] MEDS: PIPERACILLIN/TAZOB 2.25 GM 2.25 GM in DEXTROSE 5%-WATER - 50 ML IVPB SCH ×3 (02:30→17:31)
[2022-08-27] MEDS: RIFAXIMIN 550 MG TABLET PO SCH ×3 (05:31→21:42)
[2022-08-27] MEDS: CALCIUM ACETATE 667 MG CAPSULE (FP) PO SCH ×3 (08:00→17:31)
[2022-08-27 09:25] LABS: HEMOGLOBIN 9.2 GM/dL (11.7-16.9); MCH 31.4 pg (25.7-33.7); MEAN CELL VOLUME 95.3 fl (80-96); MEAN PLT VOLUME 8.1 fl (7.5-11.1); PLATELET COUNT 114 10^3/uL (134-434); RBC 2.94 M/mm3 (4.00-5.60); RDW 16.2 % (11.9-15.9); WHITE BLOOD COUNT 9.6 K/mm3 (4.0-10.0)
[2022-08-27 09:26] LABS: INR 1.76 (0.83-1.09); PROTHROMBIN TIME (PATIENT) 20.3 SEC (9.7-13.0)
[2022-08-27 09:38] LABS: ALBUMIN 1.9 g/dl (3.4-5.0); BLOOD UREA NITROGEN 35.3 mg/dL (7-18); CALCIUM 8.8 mg/dL (8.5-10.1); MAGNESIUM 2.5 mg/dL (1.8-2.4)
[2022-08-27 09:41] LABS: CREATININE 6.4 mg/dL (0.55-1.3); PHOSPHOROUS 3.6 mg/dL (2.5-4.9)
[2022-08-27 09:43] LABS: BILIRUBIN,TOTAL 11.9 mg/dL (0.2-1); TOT PROT 6.1 g/dl (6.4-8.2)
[2022-08-27] MEDS: MULTIVITAMINS (DAILY MVI) TABLET (FP) PO SCH (10:01)
[2022-08-27] MEDS: THIAMINE HCL 100 MG TABLET (FP) PO SCH (10:01)
[2022-08-27] MEDS: FOLIC ACID 1 MG TABLET (FP) PO SCH (10:02)
[2022-08-27] MEDS: LACTULOSE 20 GM/30 ML UDC (FOR ORAL USE ONLY) PO SCH ×2 (10:02→21:41)
[2022-08-27] MEDS: SPIRONOLACTONE 25 MG TABLET PO SCH ×2 (10:02→21:42)
[2022-08-27] MEDS: MIDODRINE HCL 5 MG TABLET PO SCH ×3 (10:03→17:31)
[2022-08-27 16:41] LABS: BF WBC & OTHER NUCLEATED CELLS 217 /mm3
[2022-08-27 17:24] LABS: BODY FLUID MACROPHAGES 40 %; BODY FLUID MESOTHELIAL 8 %
[2022-08-27 17:25] LABS: BODY FLUID MONOCYTE 14 %
[2022-08-27] MEDS: MELATONIN 5 MG TABLETS PO PRN (21:42)
[2022-08-27] MEDS ORDERED: SODIUM CHLORIDE 250 ML IV PRN (22:36)
[2022-08-28] MEDS: PIPERACILLIN/TAZOB 2.25 GM 2.25 GM in DEXTROSE 5%-WATER - 50 ML IVPB SCH ×3 (01:57→17:33)
[2022-08-28] MEDS: RIFAXIMIN 550 MG TABLET PO SCH ×3 (07:02→22:01)
[2022-08-28] MEDS: CALCIUM ACETATE 667 MG CAPSULE (FP) PO SCH ×3 (08:44→17:34)
[2022-08-28] MEDS: MIDODRINE HCL 5 MG TABLET PO SCH ×3 (09:08→17:34)
[2022-08-28 09:47] LABS: BASO % 1.3 % (0-2.0); EOS % 3.1 % (0-4.5); HEMATOCRIT 26.9 % (35.4-49); HEMOGLOBIN 8.7 GM/dL (11.7-16.9); LYMPH % 17.7 % (8-40); MCH 30.3 pg (25.7-33.7); MCHC 32.3 g/dl (32.0-35.9); MEAN CELL VOLUME 93.9 fl (80-96); MEAN PLT VOLUME 7.9 fl (7.5-11.1); MONO % 9.1 % (3.8-10.2); NEUT % 68.8 % (42.8-82.8); PLATELET COUNT 164 10^3/uL (134-434); RBC 2.87 M/mm3 (4.00-5.60); RDW 15.7 % (11.9-15.9); WHITE BLOOD COUNT 9.4 K/mm3 (4.0-10.0)
[2022-08-28] MEDS ORDERED: EPOETIN ALFA-EPBX 4,000 UNIT/ML VIAL SQ ONE (10:00)
[2022-08-28] MEDS: LACTULOSE 20 GM/30 ML UDC (FOR ORAL USE ONLY) PO SCH ×2 (10:07→21:38)
[2022-08-28] MEDS: THIAMINE HCL 100 MG TABLET (FP) PO SCH (10:07)
[2022-08-28] MEDS: FOLIC ACID 1 MG TABLET (FP) PO SCH (10:07)
[2022-08-28] MEDS: MULTIVITAMINS (DAILY MVI) TABLET (FP) PO SCH (10:07)
[2022-08-28] MEDS: SPIRONOLACTONE 25 MG TABLET PO SCH ×2 (10:07→21:39)
[2022-08-28 10:13] LABS: BLOOD UREA NITROGEN 42.2 mg/dL (7-18)
[2022-08-28 10:14] LABS: ALBUMIN 1.7 g/dl (3.4-5.0); CALCIUM 8.9 mg/dL (8.5-10.1); MAGNESIUM 2.5 mg/dL (1.8-2.4)
[2022-08-28 10:17] LABS: BILIRUBIN,TOTAL 10.7 mg/dL (0.2-1); TOT PROT 5.6 g/dl (6.4-8.2)
[2022-08-28] MEDS: ALBUMIN HUMAN 25% 12.5 GM/50 ML VIAL IV SCH ×4 (10:20→11:50)
[2022-08-28 10:21] LABS: CREATININE 7.4 mg/dL (0.55-1.3)
[2022-08-28 10:31] LABS: INR 1.6 (0.83-1.09); PROTHROMBIN TIME (PATIENT) 18.5 SEC (9.7-13.0)
[2022-08-28] MEDS: MELATONIN 5 MG TABLETS PO PRN (21:41)
[2022-08-29] MEDS: PIPERACILLIN/TAZOB 2.25 GM 2.25 GM in DEXTROSE 5%-WATER - 50 ML IVPB SCH ×3 (01:42→17:36)
[2022-08-29] MEDS: RIFAXIMIN 550 MG TABLET PO SCH ×3 (05:54→22:28)
[2022-08-29 09:27] LABS: EOS % 2.9 % (0-4.5); HEMATOCRIT 28.9 % (35.4-49); HEMOGLOBIN 9.3 GM/dL (11.7-16.9); LYMPH % 20.9 % (8-40); MCH 30.8 pg (25.7-33.7); MCHC 32.3 g/dl (32.0-35.9); MEAN CELL VOLUME 95.5 fl (80-96); MEAN PLT VOLUME 8.5 fl (7.5-11.1); MONO % 9.6 % (3.8-10.2); NEUT % 64.6 % (42.8-82.8); PLATELET COUNT 188 10^3/uL (134-434); RBC 3.03 M/mm3 (4.00-5.60); RDW 16.7 % (11.9-15.9); WHITE BLOOD COUNT 10.3 K/mm3 (4.0-10.0)
[2022-08-29 09:31] LABS: INR 1.52 (0.83-1.09); PROTHROMBIN TIME (PATIENT) 17.5 SEC (9.7-13.0)
[2022-08-29] MEDS: THIAMINE HCL 100 MG TABLET (FP) PO SCH (09:32)
[2022-08-29] MEDS: FOLIC ACID 1 MG TABLET (FP) PO SCH (09:32)
[2022-08-29] MEDS: MULTIVITAMINS (DAILY MVI) TABLET (FP) PO SCH (09:32)
[2022-08-29] MEDS: SPIRONOLACTONE 25 MG TABLET PO SCH ×2 (09:32→22:28)
[2022-08-29] MEDS: CALCIUM ACETATE 667 MG CAPSULE (FP) PO SCH ×3 (09:32→17:36)
[2022-08-29] MEDS: LACTULOSE 20 GM/30 ML UDC (FOR ORAL USE ONLY) PO SCH ×2 (09:35→22:28)
[2022-08-29 09:58] LABS: BLOOD UREA NITROGEN 27.7 mg/dL (7-18); CALCIUM 8.6 mg/dL (8.5-10.1); MAGNESIUM 2.4 mg/dL (1.8-2.4)
[2022-08-29 10:01] LABS: CREATININE 5.8 mg/dL (0.55-1.3)
[2022-08-29 10:03] LABS: BILIRUBIN,TOTAL 11.2 mg/dL (0.2-1); TOT PROT 6.2 g/dl (6.4-8.2)
[2022-08-29 10:05] LABS: ALBUMIN 2.2 g/dl (3.4-5.0)
[2022-08-29] MEDS: MIDODRINE HCL 5 MG TABLET PO SCH ×3 (13:46→17:36)
[2022-08-29] MEDS: MELATONIN 5 MG TABLETS PO PRN (22:28)
[2022-08-30] MEDS ORDERED: DEXTROSE 50%-WATER 25 GM/50 ML DISP.SYRIN IVPUSH ONE (03:02)
[2022-08-30] MEDS ORDERED: ACETYLCYSTEINE INJECTION 20% 10,000 MG in DEXTROSE 5%-WATER - 1,000 ML IVPB ONE ×2 (04:29→08:30)
[2022-08-30] MEDS: PIPERACILLIN/TAZOB 2.25 GM 2.25 GM in DEXTROSE 5%-WATER - 50 ML IVPB SCH ×3 (04:42→17:03)
[2022-08-30] MEDS ORDERED: AMIODARONE IN DEXTROSE,ISO-OSM 360 MG/200 ML BAG IV SCH ×2 (05:15→11:00)
[2022-08-30] MEDS ORDERED: DEXTROSE 50%-WATER - 25 GM/50 ML VIAL IVPUSH ONE (06:37)
[2022-08-30] MEDS ORDERED: DEXTROSE 50%-WATER 25 GM/50 ML DISP.SYRIN ONE (06:44)
[2022-08-30] MEDS: RIFAXIMIN 550 MG TABLET PO SCH ×3 (06:45→21:23)
[2022-08-30] MEDS: CALCIUM ACETATE 667 MG CAPSULE (FP) PO SCH ×3 (08:26→17:03)
[2022-08-30] MEDS: THIAMINE HCL 100 MG TABLET (FP) PO SCH (09:19)
[2022-08-30] MEDS: FOLIC ACID 1 MG TABLET (FP) PO SCH (09:19)
[2022-08-30] MEDS: SPIRONOLACTONE 25 MG TABLET PO SCH ×2 (09:19→21:22)
[2022-08-30] MEDS: MIDODRINE HCL 5 MG TABLET PO SCH ×4 (09:19→17:07)
[2022-08-30] MEDS: MULTIVITAMINS (DAILY MVI) TABLET (FP) PO SCH (09:19)
[2022-08-30] MEDS: LACTULOSE 20 GM/30 ML UDC (FOR ORAL USE ONLY) PO SCH ×2 (09:20→21:21)
[2022-08-30] MEDS: MUPIROCIN 2% TOPICAL OINTMENT FOR DECOLONIZATION NS SCH ×2 (11:22→21:22)
[2022-08-30] MEDS ORDERED: metoPROLOL SUCCINATE 25 MG TAB.SR.24H (FP) PO ONE (15:59)
[2022-08-30] MEDS: metoPROLOL SUCCINATE 25 MG TAB.SR.24H (FP) PO SCH (21:22)
[2022-08-30] MEDS: CHLORHEXIDINE GLUCONATE 4% CLEANSER FOR DECOLONIZATION TP SCH (21:22)
[2022-08-30] MEDS: MELATONIN 5 MG TABLETS PO PRN (21:23)
[2022-08-30] MEDS ORDERED: metoPROLOL SUCCINATE 25 MG TAB.SR.24H (FP) PO SCH (22:00)
[2022-08-31] MEDS: PIPERACILLIN/TAZOB 2.25 GM 2.25 GM in DEXTROSE 5%-WATER - 50 ML IVPB SCH ×3 (01:30→17:00)
[2022-08-31] MEDS: RIFAXIMIN 550 MG TABLET PO SCH ×3 (06:25→21:38)
[2022-08-31] MEDS ORDERED: DEXMEDETOMIDINE HCL 200 MCG/2 ML IVPB ONE (08:18)
[2022-08-31] MEDS ORDERED: PROPOFOL 40 ML ONE (08:22)
[2022-08-31] MEDS ORDERED: SUCCINYLCHOLINE CHLORIDE 200 MG/10 ML SYRINGE ONE (08:22)
[2022-08-31] MEDS: CALCIUM ACETATE 667 MG CAPSULE (FP) PO SCH ×3 (08:24→17:00)
[2022-08-31] MEDS ORDERED: DEXTROSE 50%-WATER - 25 GM/50 ML VIAL IVPUSH ONE ×2 (08:25→11:49)
[2022-08-31 08:26] LABS: BASO % 1.9 % (0-2.0); EOS % 2.8 % (0-4.5); HEMOGLOBIN 10.1 GM/dL (11.7-16.9); LYMPH % 23.4 % (8-40); MCH 30.8 pg (25.7-33.7); MCHC 32.7 g/dl (32.0-35.9); MEAN CELL VOLUME 94.2 fl (80-96); MEAN PLT VOLUME 8.2 fl (7.5-11.1); NEUT % 63.9 % (42.8-82.8); PLATELET COUNT 246 10^3/uL (134-434); RBC 3.29 M/mm3 (4.00-5.60); RDW 17.3 % (11.9-15.9); WHITE BLOOD COUNT 10.2 K/mm3 (4.0-10.0)
[2022-08-31] MEDS ORDERED: DEXTROSE 50%-WATER 25 GM/50 ML DISP.SYRIN ONE ×2 (08:27→11:53)
[2022-08-31 08:32] LABS: INR 1.4 (0.83-1.09); PROTHROMBIN TIME (PATIENT) 16.2 SEC (9.7-13.0)
[2022-08-31 09:13] LABS: CHLORIDE 98 mmol/L (98-107); SODIUM 137 mmol/L (136-145)
[2022-08-31 09:19] LABS: BLOOD UREA NITROGEN 37.5 mg/dL (7-18); GLUCOSE,RANDOM 69 mg/dL (74-106)
[2022-08-31 09:20] LABS: ANION GAP 14 MMOL/L (8-16); CO2 26 mmol/L (21-32); MAGNESIUM 2.4 mg/dL (1.8-2.4); SGPT/ALT 34 U/L (13-61)
[2022-08-31 09:22] LABS: BILIRUBIN,DIRECT 8.2 mg/dL (0.0-0.2); BILIRUBIN,TOTAL 10.3 mg/dL (0.2-1); TOT PROT 6.3 g/dl (6.4-8.2)
[2022-08-31 09:23] LABS: SGOT/AST 56 U/L (15-37)
[2022-08-31 09:24] LABS: ALK PHOS 101 U/L (45-117)
[2022-08-31 09:26] LABS: CREATININE 7.9 mg/dL (0.55-1.3)
[2022-08-31] MEDS ORDERED: BUPIVACAINE HCL/PF 0.5% (5MG/ML) 10 ML VIAL ONE (09:28)
[2022-08-31] MEDS ORDERED: LIDOCAINE HCL 1%, 10 MG/ML (20ML VIAL) ONE (09:28)
[2022-08-31] MEDS ORDERED: KETAMINE HCL 500 MG/10 ML VIAL ONE (09:31)
[2022-08-31] MEDS ORDERED: PROPOFOL 20 ML ONE (09:31)
[2022-08-31] MEDS ORDERED: GENTAMICIN SO4 80 MG/2 ML VIAL ONE (10:15)
[2022-08-31] MEDS ORDERED: BUPIVACAINE HCL/PF 0.5% (5MG/ML) 10 ML VIAL IJ ONE (10:35)
[2022-08-31] MEDS ORDERED: LIDOCAINE HCL 1%, 10 MG/ML (20ML VIAL) NR ONE (10:35)
[2022-08-31] MEDS ORDERED: GENTAMICIN SO4 80 MG/2 ML VIAL IVPB ONE (10:35)
[2022-08-31] MEDS: FOLIC ACID 1 MG TABLET (FP) PO SCH (11:55)
[2022-08-31] MEDS: LACTULOSE 20 GM/30 ML UDC (FOR ORAL USE ONLY) PO SCH ×2 (11:55→21:38)
[2022-08-31] MEDS: THIAMINE HCL 100 MG TABLET (FP) PO SCH (11:56)
[2022-08-31] MEDS: MIDODRINE HCL 5 MG TABLET PO SCH ×3 (11:56→17:00)
[2022-08-31] MEDS: MULTIVITAMINS (DAILY MVI) TABLET (FP) PO SCH (11:56)
[2022-08-31] MEDS: MUPIROCIN 2% TOPICAL OINTMENT FOR DECOLONIZATION NS SCH ×2 (11:57→21:35)
[2022-08-31] MEDS: SPIRONOLACTONE 25 MG TABLET PO SCH ×2 (11:57→21:39)
[2022-08-31] MEDS: metoPROLOL SUCCINATE 25 MG TAB.SR.24H (FP) PO SCH ×2 (12:09→21:39)
[2022-08-31] MEDS ORDERED: SODIUM CHLORIDE 250 ML IV PRN (13:32)
[2022-08-31] MEDS ORDERED: EPOETIN ALFA-EPBX 4,000 UNIT/ML VIAL SQ ONE (14:00)
[2022-08-31 14:09] LABS: BASO % 1.5 % (0-2.0); EOS % 1.8 % (0-4.5); HEMOGLOBIN 9.1 GM/dL (11.7-16.9); MCH 31.2 pg (25.7-33.7); MCHC 33.5 g/dl (32.0-35.9); MEAN CELL VOLUME 93.2 fl (80-96); MEAN PLT VOLUME 7.9 fl (7.5-11.1); MONO % 8.9 % (3.8-10.2); NEUT % 66.8 % (42.8-82.8); PLATELET COUNT 221 10^3/uL (134-434); RDW 16.8 % (11.9-15.9); WHITE BLOOD COUNT 9.3 K/mm3 (4.0-10.0)
[2022-08-31] MEDS: CHLORHEXIDINE GLUCONATE 4% CLEANSER FOR DECOLONIZATION TP SCH (21:35)
[2022-08-31] MEDS: MELATONIN 5 MG TABLETS PO PRN (21:38)
[2022-08-31] MEDS: ENOXAPARIN NA (PORCINE) 60 MG/0.6 ML DISP.SYRIN SQ SCH (21:39)
[2022-09-01] MEDS: PIPERACILLIN/TAZOB 2.25 GM 2.25 GM in DEXTROSE 5%-WATER - 50 ML IVPB SCH ×3 (01:08→18:47)
[2022-09-01] MEDS: RIFAXIMIN 550 MG TABLET PO SCH ×3 (05:18→21:42)
[2022-09-01 07:11] LABS: BASO % 1.7 % (0-2.0); EOS % 2.6 % (0-4.5); HEMATOCRIT 29.8 % (35.4-49); HEMOGLOBIN 9.7 GM/dL (11.7-16.9); MCH 30.2 pg (25.7-33.7); MCHC 32.5 g/dl (32.0-35.9); MEAN CELL VOLUME 92.8 fl (80-96); MEAN PLT VOLUME 8.4 fl (7.5-11.1); MONO % 8.8 % (3.8-10.2); NEUT % 68.9 % (42.8-82.8); PLATELET COUNT 182 10^3/uL (134-434); RBC 3.21 M/mm3 (4.00-5.60); WHITE BLOOD COUNT 11.1 K/mm3 (4.0-10.0)
[2022-09-01 07:17] LABS: CHLORIDE 98 mmol/L (98-107); SODIUM 138 mmol/L (136-145)
[2022-09-01 07:19] LABS: CALCIUM 8.8 mg/dL (8.5-10.1)
[2022-09-01 07:20] LABS: ALBUMIN 2.1 g/dl (3.4-5.0); ANION GAP 13 MMOL/L (8-16); BLOOD UREA NITROGEN 42.6 mg/dL (7-18); CO2 27 mmol/L (21-32); GLUCOSE,RANDOM 76 mg/dL (74-106); MAGNESIUM 2.5 mg/dL (1.8-2.4)
[2022-09-01 07:22] LABS: SGPT/ALT 33 U/L (13-61)
[2022-09-01 07:23] LABS: SGOT/AST 53 U/L (15-37)
[2022-09-01 07:24] LABS: BILIRUBIN,TOTAL 9.8 mg/dL (0.2-1); TOT PROT 6.4 g/dl (6.4-8.2)
[2022-09-01 07:26] LABS: ALK PHOS 109 U/L (45-117)
[2022-09-01 07:27] LABS: CREATININE 8.2 mg/dL (0.55-1.3)
[2022-09-01] MEDS: CALCIUM ACETATE 667 MG CAPSULE (FP) PO SCH ×3 (08:40→16:48)
[2022-09-01] MEDS: MUPIROCIN 2% TOPICAL OINTMENT FOR DECOLONIZATION NS SCH ×2 (10:00→21:42)
[2022-09-01] MEDS: FOLIC ACID 1 MG TABLET (FP) PO SCH (10:07)
[2022-09-01] MEDS: LACTULOSE 20 GM/30 ML UDC (FOR ORAL USE ONLY) PO SCH ×2 (10:07→21:43)
[2022-09-01] MEDS: THIAMINE HCL 100 MG TABLET (FP) PO SCH (10:07)
[2022-09-01] MEDS: MULTIVITAMINS (DAILY MVI) TABLET (FP) PO SCH (10:07)
[2022-09-01] MEDS: SPIRONOLACTONE 25 MG TABLET PO SCH ×2 (10:08→21:42)
[2022-09-01] MEDS: MIDODRINE HCL 5 MG TABLET PO SCH ×3 (10:08→18:47)
[2022-09-01] MEDS: metoPROLOL SUCCINATE 25 MG TAB.SR.24H (FP) PO SCH ×2 (10:19→21:42)
[2022-09-01] MEDS: ENOXAPARIN NA (PORCINE) 60 MG/0.6 ML DISP.SYRIN SQ SCH ×3 (11:39→21:41)
[2022-09-01] MEDS: CHLORHEXIDINE GLUCONATE 4% CLEANSER FOR DECOLONIZATION TP SCH (21:43)
[2022-09-01] MEDS: MELATONIN 5 MG TABLETS PO PRN (21:47)
[2022-09-02] MEDS: PIPERACILLIN/TAZOB 2.25 GM 2.25 GM in DEXTROSE 5%-WATER - 50 ML IVPB SCH ×2 (02:15→10:51)
[2022-09-02] MEDS: RIFAXIMIN 550 MG TABLET PO SCH ×3 (05:28→21:39)
[2022-09-02 07:30] LABS: BASO % 1.4 % (0-2.0); EOS % 2.1 % (0-4.5); HEMOGLOBIN 9.6 GM/dL (11.7-16.9); LYMPH % 22.2 % (8-40); MCH 30.4 pg (25.7-33.7); MEAN CELL VOLUME 92.1 fl (80-96); MEAN PLT VOLUME 8.5 fl (7.5-11.1); MONO % 9.6 % (3.8-10.2); NEUT % 64.7 % (42.8-82.8); PLATELET COUNT 168 10^3/uL (134-434); RBC 3.15 M/mm3 (4.00-5.60); RDW 16.4 % (11.9-15.9); WHITE BLOOD COUNT 10.2 K/mm3 (4.0-10.0)
[2022-09-02 07:41] LABS: CHLORIDE 99 mmol/L (98-107); SODIUM 137 mmol/L (136-145)
[2022-09-02 07:43] LABS: CALCIUM 8.2 mg/dL (8.5-10.1)
[2022-09-02 07:44] LABS: ALBUMIN 1.7 g/dl (3.4-5.0); ANION GAP 11 MMOL/L (8-16); BLOOD UREA NITROGEN 52.4 mg/dL (7-18); CO2 27 mmol/L (21-32); GLUCOSE,RANDOM 69 mg/dL (74-106); MAGNESIUM 2.5 mg/dL (1.8-2.4)
[2022-09-02 07:47] LABS: SGOT/AST 51 U/L (15-37); SGPT/ALT 29 U/L (13-61)
[2022-09-02 07:48] LABS: TOT PROT 5.6 g/dl (6.4-8.2)
[2022-09-02] MEDS ORDERED: SODIUM CHLORIDE 250 ML IV PRN (07:48)
[2022-09-02 07:49] LABS: BILIRUBIN,TOTAL 7.7 mg/dL (0.2-1)
[2022-09-02 07:50] LABS: ALK PHOS 96 U/L (45-117)
[2022-09-02 07:54] LABS: CREATININE 8.9 mg/dL (0.55-1.3)
[2022-09-02] MEDS: ALBUMIN HUMAN 25% 12.5 GM/50 ML VIAL IV SCH ×2 (08:00→09:04)
[2022-09-02] MEDS ORDERED: EPOETIN ALFA-EPBX 4,000 UNIT/ML VIAL SQ ONE (09:00)
[2022-09-02 10:08] LABS: INR 1.37 (0.83-1.09); PROTHROMBIN TIME (PATIENT) 15.8 SEC (9.7-13.0)
[2022-09-02] MEDS: MIDODRINE HCL 5 MG TABLET PO SCH ×3 (10:48→18:32)
[2022-09-02] MEDS: THIAMINE HCL 100 MG TABLET (FP) PO SCH (10:49)
[2022-09-02] MEDS: MULTIVITAMINS (DAILY MVI) TABLET (FP) PO SCH (10:49)
[2022-09-02] MEDS: SPIRONOLACTONE 25 MG TABLET PO SCH ×2 (10:49→21:39)
[2022-09-02] MEDS: MUPIROCIN 2% TOPICAL OINTMENT FOR DECOLONIZATION NS SCH ×2 (10:50→21:39)
[2022-09-02] MEDS: FOLIC ACID 1 MG TABLET (FP) PO SCH (10:50)
[2022-09-02] MEDS: CALCIUM ACETATE 667 MG CAPSULE (FP) PO SCH ×3 (10:50→18:32)
[2022-09-02] MEDS: ENOXAPARIN NA (PORCINE) 60 MG/0.6 ML DISP.SYRIN SQ SCH ×2 (10:51→21:38)
[2022-09-02] MEDS: metoPROLOL SUCCINATE 25 MG TAB.SR.24H (FP) PO SCH ×2 (10:51→21:39)
[2022-09-02] MEDS: LACTULOSE 20 GM/30 ML UDC (FOR ORAL USE ONLY) PO SCH ×2 (10:51→21:38)
[2022-09-02] MEDS: MELATONIN 5 MG TABLETS PO PRN (21:44)
[2022-09-02] MEDS: CHLORHEXIDINE GLUCONATE 4% CLEANSER FOR DECOLONIZATION TP SCH (21:44)
[2022-09-03] MEDS: RIFAXIMIN 550 MG TABLET PO SCH ×3 (06:15→21:26)
[2022-09-03 07:38] LABS: BASO % 1.2 % (0-2.0); EOS % 2.3 % (0-4.5); HEMATOCRIT 28.3 % (35.4-49); HEMOGLOBIN 9.4 GM/dL (11.7-16.9); MCH 30.5 pg (25.7-33.7); MCHC 33.3 g/dl (32.0-35.9); MEAN CELL VOLUME 91.5 fl (80-96); MEAN PLT VOLUME 8.6 fl (7.5-11.1); MONO % 11.5 % (3.8-10.2); PLATELET COUNT 154 10^3/uL (134-434); RBC 3.09 M/mm3 (4.00-5.60); RDW 16.5 % (11.9-15.9); WHITE BLOOD COUNT 10.7 K/mm3 (4.0-10.0)
[2022-09-03 07:45] LABS: INR 1.3 (0.83-1.09)
[2022-09-03 07:49] LABS: CALCIUM 7.8 mg/dL (8.5-10.1)
[2022-09-03 07:50] LABS: MAGNESIUM 2.1 mg/dL (1.8-2.4)
[2022-09-03 07:53] LABS: CREATININE 6.3 mg/dL (0.55-1.3)
[2022-09-03 07:55] LABS: BILIRUBIN,TOTAL 7.4 mg/dL (0.2-1); TOT PROT 5.5 g/dl (6.4-8.2)
[2022-09-03] MEDS: FOLIC ACID 1 MG TABLET (FP) PO SCH (09:52)
[2022-09-03] MEDS: SPIRONOLACTONE 25 MG TABLET PO SCH ×2 (09:52→21:25)
[2022-09-03] MEDS: CALCIUM ACETATE 667 MG CAPSULE (FP) PO SCH ×3 (09:52→17:51)
[2022-09-03] MEDS: THIAMINE HCL 100 MG TABLET (FP) PO SCH (09:52)
[2022-09-03] MEDS: MELATONIN 5 MG TABLETS PO PRN (09:53)
[2022-09-03] MEDS: metoPROLOL SUCCINATE 25 MG TAB.SR.24H (FP) PO SCH ×2 (09:53→21:26)
[2022-09-03] MEDS: MUPIROCIN 2% TOPICAL OINTMENT FOR DECOLONIZATION NS SCH ×2 (09:54→21:25)
[2022-09-03] MEDS: LACTULOSE 20 GM/30 ML UDC (FOR ORAL USE ONLY) PO SCH ×2 (09:54→21:26)
[2022-09-03] MEDS: MIDODRINE HCL 5 MG TABLET PO SCH ×3 (09:56→17:51)
[2022-09-03] MEDS: MULTIVITAMINS (DAILY MVI) TABLET (FP) PO SCH (13:38)
[2022-09-03] MEDS: CHLORHEXIDINE GLUCONATE 4% CLEANSER FOR DECOLONIZATION TP SCH (21:26)
[2022-09-04] MEDS: RIFAXIMIN 550 MG TABLET PO SCH ×3 (05:56→22:08)
[2022-09-04] MEDS: CALCIUM ACETATE 667 MG CAPSULE (FP) PO SCH ×3 (07:52→17:32)
[2022-09-04 08:01] LABS: BASO % 2.1 % (0-2.0); EOS % 1.6 % (0-4.5); HEMATOCRIT 30.6 % (35.4-49); LYMPH % 25.7 % (8-40); MCHC 32.7 g/dl (32.0-35.9); MEAN CELL VOLUME 91.6 fl (80-96); MEAN PLT VOLUME 8.6 fl (7.5-11.1); MONO % 9.8 % (3.8-10.2); NEUT % 60.8 % (42.8-82.8); PLATELET COUNT 210 10^3/uL (134-434); RBC 3.34 M/mm3 (4.00-5.60); RDW 16.1 % (11.9-15.9); WHITE BLOOD COUNT 9.5 K/mm3 (4.0-10.0)
[2022-09-04] MEDS ORDERED: SODIUM CHLORIDE 250 ML IV PRN (08:16)
[2022-09-04 08:19] LABS: INR 1.17 (0.83-1.09); PROTHROMBIN TIME (PATIENT) 13.6 SEC (9.7-13.0)
[2022-09-04 08:41] LABS: BLOOD UREA NITROGEN 41.3 mg/dL (7-18); CALCIUM 8.3 mg/dL (8.5-10.1); MAGNESIUM 2.3 mg/dL (1.8-2.4)
[2022-09-04 08:46] LABS: BILIRUBIN,TOTAL 7.6 mg/dL (0.2-1); TOT PROT 6.2 g/dl (6.4-8.2)
[2022-09-04 08:50] LABS: CREATININE 7.4 mg/dL (0.55-1.3)
[2022-09-04] MEDS ORDERED: EPOETIN ALFA-EPBX 4,000 UNIT/ML VIAL SQ ONE (09:30)
[2022-09-04] MEDS: MIDODRINE HCL 5 MG TABLET PO SCH ×3 (09:54→17:32)
[2022-09-04] MEDS: MULTIVITAMINS (DAILY MVI) TABLET (FP) PO SCH (11:04)
[2022-09-04] MEDS: FOLIC ACID 1 MG TABLET (FP) PO SCH (11:04)
[2022-09-04] MEDS: LACTULOSE 20 GM/30 ML UDC (FOR ORAL USE ONLY) PO SCH ×2 (11:04→21:21)
[2022-09-04] MEDS: metoPROLOL SUCCINATE 25 MG TAB.SR.24H (FP) PO SCH ×2 (11:04→21:20)
[2022-09-04] MEDS: THIAMINE HCL 100 MG TABLET (FP) PO SCH (11:04)
[2022-09-04] MEDS: SPIRONOLACTONE 25 MG TABLET PO SCH ×2 (11:04→21:20)
[2022-09-04] MEDS: MELATONIN 5 MG TABLETS PO PRN (21:23)
[2022-09-04] MEDS: APIXABAN 5 MG TABLET PO SCH (21:23)
[2022-09-04] MEDS: CHLORHEXIDINE GLUCONATE 4% CLEANSER FOR DECOLONIZATION TP SCH (21:23)
[2022-09-04 23:23] VITALS: BMI 35.2
[2022-09-05] MEDS: RIFAXIMIN 550 MG TABLET PO SCH ×3 (06:17→22:26)
[2022-09-05] MEDS: THIAMINE HCL 100 MG TABLET (FP) PO SCH (10:44)
[2022-09-05] MEDS: MULTIVITAMINS (DAILY MVI) TABLET (FP) PO SCH (10:44)
[2022-09-05] MEDS: APIXABAN 5 MG TABLET PO SCH (10:45)
[2022-09-05] MEDS: CALCIUM ACETATE 667 MG CAPSULE (FP) PO SCH ×3 (10:45→17:07)
[2022-09-05] MEDS: MIDODRINE HCL 5 MG TABLET PO SCH ×3 (10:45→17:07)
[2022-09-05] MEDS: FOLIC ACID 1 MG TABLET (FP) PO SCH (10:45)
[2022-09-05] MEDS: SPIRONOLACTONE 25 MG TABLET PO SCH ×2 (10:45→22:23)
[2022-09-05] MEDS: metoPROLOL SUCCINATE 25 MG TAB.SR.24H (FP) PO SCH ×2 (10:49→22:23)
[2022-09-05] MEDS: LACTULOSE 20 GM/30 ML UDC (FOR ORAL USE ONLY) PO SCH ×2 (10:49→22:23)
[2022-09-05 12:58] LABS: BASO % 1.2 % (0-2.0); EOS % 2.7 % (0-4.5); HEMOGLOBIN 9.9 GM/dL (11.7-16.9); LYMPH % 24.6 % (8-40); MCH 30.2 pg (25.7-33.7); MCHC 32.9 g/dl (32.0-35.9); MEAN CELL VOLUME 91.9 fl (80-96); MEAN PLT VOLUME 8.2 fl (7.5-11.1); MONO % 12.5 % (3.8-10.2); PLATELET COUNT 182 10^3/uL (134-434); RBC 3.26 M/mm3 (4.00-5.60); RDW 16.3 % (11.9-15.9); WHITE BLOOD COUNT 8.9 K/mm3 (4.0-10.0)
[2022-09-05 13:21] LABS: CALCIUM 8.1 mg/dL (8.5-10.1)
[2022-09-05 13:22] LABS: ALBUMIN 2.2 g/dl (3.4-5.0); BLOOD UREA NITROGEN 29.2 mg/dL (7-18); MAGNESIUM 2.1 mg/dL (1.8-2.4)
[2022-09-05 13:25] LABS: CREATININE 5.7 mg/dL (0.55-1.3)
[2022-09-05 13:26] LABS: BILIRUBIN,TOTAL 6.5 mg/dL (0.2-1); TOT PROT 6.1 g/dl (6.4-8.2)
[2022-09-05] MEDS: CHLORHEXIDINE GLUCONATE 4% CLEANSER FOR DECOLONIZATION TP SCH (22:16)
[2022-09-06] MEDS: MELATONIN 5 MG TABLETS PO PRN (01:56)
[2022-09-06] MEDS: RIFAXIMIN 550 MG TABLET PO SCH ×3 (05:03→22:16)
[2022-09-06] MEDS: CALCIUM ACETATE 667 MG CAPSULE (FP) PO SCH ×3 (09:29→18:45)
[2022-09-06] MEDS: THIAMINE HCL 100 MG TABLET (FP) PO SCH (09:29)
[2022-09-06] MEDS: SPIRONOLACTONE 25 MG TABLET PO SCH ×2 (09:29→23:04)
[2022-09-06] MEDS: MIDODRINE HCL 5 MG TABLET PO SCH ×3 (09:30→18:47)
[2022-09-06] MEDS: LACTULOSE 20 GM/30 ML UDC (FOR ORAL USE ONLY) PO SCH ×2 (09:30→22:15)
[2022-09-06] MEDS: MULTIVITAMINS (DAILY MVI) TABLET (FP) PO SCH (09:30)
[2022-09-06] MEDS: FOLIC ACID 1 MG TABLET (FP) PO SCH (09:30)
[2022-09-06] MEDS: metoPROLOL SUCCINATE 25 MG TAB.SR.24H (FP) PO SCH ×2 (09:30→23:04)
[2022-09-06 13:59] LABS: BASO % 1.3 % (0-2.0); EOS % 2.2 % (0-4.5); HEMATOCRIT 28.8 % (35.4-49); HEMOGLOBIN 9.4 GM/dL (11.7-16.9); LYMPH % 25.1 % (8-40); MCHC 32.7 g/dl (32.0-35.9); MEAN PLT VOLUME 8.7 fl (7.5-11.1); MONO % 8.8 % (3.8-10.2); NEUT % 62.6 % (42.8-82.8); PLATELET COUNT 231 10^3/uL (134-434); RBC 3.13 M/mm3 (4.00-5.60); RDW 16.5 % (11.9-15.9); WHITE BLOOD COUNT 9.2 K/mm3 (4.0-10.0)
[2022-09-06 14:33] LABS: CALCIUM 8.2 mg/dL (8.5-10.1)
[2022-09-06 14:34] LABS: ALBUMIN 1.9 g/dl (3.4-5.0); BLOOD UREA NITROGEN 39.1 mg/dL (7-18); MAGNESIUM 2.2 mg/dL (1.8-2.4)
[2022-09-06 14:37] LABS: CREATININE 6.7 mg/dL (0.55-1.3)
[2022-09-06 14:38] LABS: BILIRUBIN,TOTAL 5.6 mg/dL (0.2-1)
[2022-09-06 14:39] LABS: TOT PROT 5.4 g/dl (6.4-8.2)
[2022-09-06] MEDS ORDERED: SODIUM CHLORIDE 500 ML IV STA (18:57)
[2022-09-06] MEDS: ALBUMIN HUMAN 25% 12.5 GM/50 ML VIAL IV SCH ×4 (21:17→23:40)
[2022-09-06 22:15] LABS: BASO % 0.7 % (0-2.0); EOS % 0.5 % (0-4.5); HEMATOCRIT 24.5 % (35.4-49); MCHC 32.7 g/dl (32.0-35.9); MEAN PLT VOLUME 8.3 fl (7.5-11.1); MONO % 10.2 % (3.8-10.2); NEUT % 70.6 % (42.8-82.8); PLATELET COUNT 230 10^3/uL (134-434); RBC 2.66 M/mm3 (4.00-5.60); RDW 16.5 % (11.9-15.9); WHITE BLOOD COUNT 10.9 K/mm3 (4.0-10.0)
[2022-09-06] MEDS: CHLORHEXIDINE GLUCONATE 4% CLEANSER FOR DECOLONIZATION TP SCH (22:16)
[2022-09-06 22:25] LABS: CALCIUM 7.6 mg/dL (8.5-10.1)
[2022-09-06 22:26] LABS: BLOOD UREA NITROGEN 42.3 mg/dL (7-18); MAGNESIUM 2.1 mg/dL (1.8-2.4)
[2022-09-06 22:29] LABS: CREATININE 6.9 mg/dL (0.55-1.3); PHOSPHOROUS 3.3 mg/dL (2.5-4.9)
[2022-09-06 22:30] LABS: TOT PROT 6.2 g/dl (6.4-8.2)
[2022-09-06 22:35] LABS: ALBUMIN 3.1 g/dl (3.4-5.0)
[2022-09-07] MEDS: RIFAXIMIN 550 MG TABLET PO SCH ×3 (06:45→22:30)
[2022-09-07] MEDS ORDERED: SODIUM CHLORIDE 250 ML IV PRN (07:48)
[2022-09-07] MEDS: ALBUMIN HUMAN 25% 12.5 GM/50 ML VIAL IV SCH ×2 (09:00→09:30)
[2022-09-07] MEDS ORDERED: EPOETIN ALFA-EPBX 4,000 UNIT/ML VIAL SQ ONE (09:00)
[2022-09-07 09:59] LABS: BASO % 1.3 % (0-2.0); EOS % 0.7 % (0-4.5); HEMATOCRIT 22.1 % (35.4-49); HEMOGLOBIN 7.3 GM/dL (11.7-16.9); LYMPH % 20.4 % (8-40); MCH 30.5 pg (25.7-33.7); MCHC 33.1 g/dl (32.0-35.9); MEAN PLT VOLUME 8.6 fl (7.5-11.1); MONO % 8.5 % (3.8-10.2); NEUT % 69.1 % (42.8-82.8); PLATELET COUNT 210 10^3/uL (134-434); RDW 16.7 % (11.9-15.9); WHITE BLOOD COUNT 9.1 K/mm3 (4.0-10.0)
[2022-09-07] MEDS ORDERED: oxyCODONE HCL 5 MG TABLET PO ONE (09:59)
[2022-09-07] MEDS: CALCIUM ACETATE 667 MG CAPSULE (FP) PO SCH ×3 (10:02→17:01)
[2022-09-07] MEDS: THIAMINE HCL 100 MG TABLET (FP) PO SCH (10:02)
[2022-09-07] MEDS: LACTULOSE 20 GM/30 ML UDC (FOR ORAL USE ONLY) PO SCH ×2 (10:02→22:28)
[2022-09-07] MEDS: MULTIVITAMINS (DAILY MVI) TABLET (FP) PO SCH (10:02)
[2022-09-07] MEDS: FOLIC ACID 1 MG TABLET (FP) PO SCH (10:02)
[2022-09-07] MEDS: MIDODRINE HCL 5 MG TABLET PO SCH ×3 (10:08→17:01)
[2022-09-07 10:09] LABS: CHLORIDE 99 mmol/L (98-107); SODIUM 137 mmol/L (136-145)
[2022-09-07 10:12] LABS: ANION GAP 13 MMOL/L (8-16); CALCIUM 8.3 mg/dL (8.5-10.1); CO2 26 mmol/L (21-32)
[2022-09-07 10:13] LABS: BLOOD UREA NITROGEN 48.9 mg/dL (7-18); GLUCOSE,RANDOM 150 mg/dL (74-106); MAGNESIUM 2.3 mg/dL (1.8-2.4)
[2022-09-07] MEDS: metoPROLOL SUCCINATE 25 MG TAB.SR.24H (FP) PO SCH ×2 (10:13→22:29)
[2022-09-07] MEDS: SPIRONOLACTONE 25 MG TABLET PO SCH ×2 (10:13→15:16)
[2022-09-07 10:16] LABS: SGOT/AST 48 U/L (15-37); SGPT/ALT 28 U/L (13-61)
[2022-09-07 10:17] LABS: TOT PROT 5.3 g/dl (6.4-8.2)
[2022-09-07 10:18] LABS: ALK PHOS 79 U/L (45-117)
[2022-09-07] MEDS ORDERED: SPIRONOLACTONE 25 MG TABLET PO SCH (10:42)
[2022-09-07 10:45] LABS: ALBUMIN 2.4 g/dl (3.4-5.0); CREATININE 7.6 mg/dL (0.55-1.3)
[2022-09-07] MEDS: CHLORHEXIDINE GLUCONATE 4% CLEANSER FOR DECOLONIZATION TP SCH (22:29)
[2022-09-07] MEDS: MELATONIN 5 MG TABLETS PO PRN (22:36)
[2022-09-08] MEDS: RIFAXIMIN 550 MG TABLET PO SCH ×3 (06:47→22:09)
[2022-09-08] MEDS: CALCIUM ACETATE 667 MG CAPSULE (FP) PO SCH ×3 (07:35→17:01)
[2022-09-08 07:44] LABS: BASO % 1.1 % (0-2.0); EOS % 1.8 % (0-4.5); HEMATOCRIT 22.4 % (35.4-49); HEMOGLOBIN 7.4 GM/dL (11.7-16.9); LYMPH % 25.2 % (8-40); MCH 30.8 pg (25.7-33.7); MCHC 33.3 g/dl (32.0-35.9); MEAN CELL VOLUME 92.3 fl (80-96); MEAN PLT VOLUME 8.8 fl (7.5-11.1); NEUT % 59.9 % (42.8-82.8); PLATELET COUNT 150 10^3/uL (134-434); RBC 2.42 M/mm3 (4.00-5.60); RDW 17.5 % (11.9-15.9); WHITE BLOOD COUNT 10.1 K/mm3 (4.0-10.0)
[2022-09-08 08:09] LABS: ALBUMIN 2.4 g/dl (3.4-5.0); CALCIUM 8.1 mg/dL (8.5-10.1); MAGNESIUM 2.3 mg/dL (1.8-2.4)
[2022-09-08 08:10] LABS: BLOOD UREA NITROGEN 46.1 mg/dL (7-18)
[2022-09-08 08:14] LABS: BILIRUBIN,TOTAL 5.7 mg/dL (0.2-1); TOT PROT 5.4 g/dl (6.4-8.2)
[2022-09-08] MEDS: FOLIC ACID 1 MG TABLET (FP) PO SCH (09:07)
[2022-09-08] MEDS: FUROSEMIDE 40 MG TABLET (FP) PO SCH (09:07)
[2022-09-08] MEDS: THIAMINE HCL 100 MG TABLET (FP) PO SCH (09:07)
[2022-09-08] MEDS: metoPROLOL SUCCINATE 25 MG TAB.SR.24H (FP) PO SCH ×2 (09:07→22:00)
[2022-09-08] MEDS: LACTULOSE 20 GM/30 ML UDC (FOR ORAL USE ONLY) PO SCH ×2 (09:08→21:55)
[2022-09-08] MEDS: MIDODRINE HCL 5 MG TABLET PO SCH ×3 (09:08→17:01)
[2022-09-08] MEDS: MULTIVITAMINS (DAILY MVI) TABLET (FP) PO SCH (09:08)
[2022-09-08] MEDS: SPIRONOLACTONE 25 MG TABLET PO SCH ×2 (09:08→21:56)
[2022-09-08] MEDS: HEPARIN NA (PORCINE) 5,000 UNITS/ML 1ML VIAL SQ SCH ×2 (13:29→21:55)
[2022-09-08] MEDS: CHLORHEXIDINE GLUCONATE 4% CLEANSER FOR DECOLONIZATION TP SCH (21:57)
[2022-09-08] MEDS: MELATONIN 5 MG TABLETS PO PRN (22:03)
[2022-09-09] MEDS: HEPARIN NA (PORCINE) 5,000 UNITS/ML 1ML VIAL SQ SCH ×3 (06:20→22:01)
[2022-09-09] MEDS: RIFAXIMIN 550 MG TABLET PO SCH ×3 (06:21→22:02)
[2022-09-09 07:27] LABS: BASO % 0.2 % (0-2.0); EOS % 4.3 % (0-4.5); HEMATOCRIT 23.3 % (35.4-49); HEMOGLOBIN 7.7 GM/dL (11.7-16.9); LYMPH % 23.2 % (8-40); MCH 30.4 pg (25.7-33.7); MCHC 32.9 g/dl (32.0-35.9); MEAN CELL VOLUME 92.5 fl (80-96); MEAN PLT VOLUME 8.4 fl (7.5-11.1); MONO % 5.9 % (3.8-10.2); NEUT % 66.4 % (42.8-82.8); PLATELET COUNT 194 10^3/uL (134-434); RBC 2.52 M/mm3 (4.00-5.60); RDW 17.8 % (11.9-15.9); WHITE BLOOD COUNT 9.6 K/mm3 (4.0-10.0)
[2022-09-09 07:35] LABS: INR 1.18 (0.83-1.09); PROTHROMBIN TIME (PATIENT) 13.7 SEC (9.7-13.0)
[2022-09-09 07:48] LABS: CHLORIDE 97 mmol/L (98-107); SODIUM 134 mmol/L (136-145)
[2022-09-09 07:51] LABS: CALCIUM 8.4 mg/dL (8.5-10.1)
[2022-09-09 07:52] LABS: ALBUMIN 2.3 g/dl (3.4-5.0); ANION GAP 10 MMOL/L (8-16); BLOOD UREA NITROGEN 54.1 mg/dL (7-18); CO2 26 mmol/L (21-32); GLUCOSE,RANDOM 106 mg/dL (74-106); MAGNESIUM 2.3 mg/dL (1.8-2.4)
[2022-09-09 07:55] LABS: SGOT/AST 47 U/L (15-37); SGPT/ALT 30 U/L (13-61)
[2022-09-09 07:57] LABS: BILIRUBIN,TOTAL 5.4 mg/dL (0.2-1); TOT PROT 5.7 g/dl (6.4-8.2)
[2022-09-09 07:58] LABS: ALK PHOS 102 U/L (45-117)
[2022-09-09] MEDS ORDERED: SODIUM CHLORIDE 250 ML IV PRN (08:00)
[2022-09-09 08:09] LABS: CREATININE 8.3 mg/dL (0.55-1.3)
[2022-09-09] MEDS: MIDODRINE HCL 5 MG TABLET PO SCH ×4 (08:47→17:02)
[2022-09-09] MEDS: ALBUMIN HUMAN 25% 12.5 GM/50 ML VIAL IV SCH ×4 (10:00→11:30)
[2022-09-09] MEDS: CALCIUM ACETATE 667 MG CAPSULE (FP) PO SCH ×3 (10:09→17:02)
[2022-09-09] MEDS: EPOETIN ALFA-EPBX 10,000 UNIT/ML VIAL SQ ONE ×2 (10:09→11:35)
[2022-09-09] MEDS: LACTULOSE 20 GM/30 ML UDC (FOR ORAL USE ONLY) PO SCH ×4 (10:10→21:59)
[2022-09-09] MEDS: SPIRONOLACTONE 25 MG TABLET PO SCH ×3 (10:10→22:00)
[2022-09-09] MEDS: THIAMINE HCL 100 MG TABLET (FP) PO SCH ×2 (10:11→13:03)
[2022-09-09] MEDS: FOLIC ACID 1 MG TABLET (FP) PO SCH ×2 (10:11→13:05)
[2022-09-09] MEDS: FUROSEMIDE 40 MG TABLET (FP) PO SCH ×2 (10:11→13:04)
[2022-09-09] MEDS: metoPROLOL SUCCINATE 25 MG TAB.SR.24H (FP) PO SCH ×3 (10:11→22:02)
[2022-09-09] MEDS: MULTIVITAMINS (DAILY MVI) TABLET (FP) PO SCH ×2 (10:11→13:05)
[2022-09-09] MEDS: CHLORHEXIDINE GLUCONATE 4% CLEANSER FOR DECOLONIZATION TP SCH (22:01)
[2022-09-09] MEDS: MELATONIN 5 MG TABLETS PO PRN (22:02)
[2022-09-10] MEDS: RIFAXIMIN 550 MG TABLET PO SCH ×3 (06:31→22:48)
[2022-09-10] MEDS: HEPARIN NA (PORCINE) 5,000 UNITS/ML 1ML VIAL SQ SCH ×3 (06:31→22:47)
[2022-09-10 07:49] LABS: BASO % 1.4 % (0-2.0); EOS % 1.8 % (0-4.5); HEMATOCRIT 22.7 % (35.4-49); HEMOGLOBIN 7.4 GM/dL (11.7-16.9); LYMPH % 26.7 % (8-40); MCH 30.4 pg (25.7-33.7); MCHC 32.6 g/dl (32.0-35.9); MEAN CELL VOLUME 93.2 fl (80-96); MEAN PLT VOLUME 8.2 fl (7.5-11.1); MONO % 11.9 % (3.8-10.2); NEUT % 58.2 % (42.8-82.8); PLATELET COUNT 122 10^3/uL (134-434); RBC 2.44 M/mm3 (4.00-5.60); RDW 17.9 % (11.9-15.9); WHITE BLOOD COUNT 10.8 K/mm3 (4.0-10.0)
[2022-09-10 08:33] LABS: ALBUMIN 2.4 g/dl (3.4-5.0)
[2022-09-10 08:34] LABS: BLOOD UREA NITROGEN 42.7 mg/dL (7-18)
[2022-09-10 08:35] LABS: CALCIUM 8.4 mg/dL (8.5-10.1); MAGNESIUM 2.2 mg/dL (1.8-2.4)
[2022-09-10 08:36] LABS: CREATININE 6.8 mg/dL (0.55-1.3)
[2022-09-10 08:38] LABS: BILIRUBIN,TOTAL 4.7 mg/dL (0.2-1); TOT PROT 5.5 g/dl (6.4-8.2)
[2022-09-10] MEDS: MIDODRINE HCL 5 MG TABLET PO SCH ×3 (09:02→17:24)
[2022-09-10] MEDS: THIAMINE HCL 100 MG TABLET (FP) PO SCH (09:02)
[2022-09-10] MEDS: metoPROLOL SUCCINATE 25 MG TAB.SR.24H (FP) PO SCH ×2 (09:02→22:48)
[2022-09-10] MEDS: CALCIUM ACETATE 667 MG CAPSULE (FP) PO SCH ×3 (09:02→17:24)
[2022-09-10] MEDS: FOLIC ACID 1 MG TABLET (FP) PO SCH (09:02)
[2022-09-10] MEDS: MULTIVITAMINS (DAILY MVI) TABLET (FP) PO SCH (09:02)
[2022-09-10] MEDS: SPIRONOLACTONE 25 MG TABLET PO SCH ×2 (09:03→22:48)
[2022-09-10] MEDS: LACTULOSE 20 GM/30 ML UDC (FOR ORAL USE ONLY) PO SCH ×2 (09:03→22:48)
[2022-09-10] MEDS: FUROSEMIDE 40 MG TABLET (FP) PO SCH (09:04)
[2022-09-10] MEDS: MELATONIN 5 MG TABLETS PO PRN (22:49)
[2022-09-11] MEDS: HEPARIN NA (PORCINE) 5,000 UNITS/ML 1ML VIAL SQ SCH ×3 (05:43→22:52)
[2022-09-11] MEDS: RIFAXIMIN 550 MG TABLET PO SCH ×3 (05:43→22:51)
[2022-09-11] MEDS: MIDODRINE HCL 5 MG TABLET PO SCH ×4 (08:03→17:37)
[2022-09-11] MEDS: ALBUMIN HUMAN 25% 12.5 GM/50 ML VIAL IV SCH ×3 (08:25→11:37)
[2022-09-11] MEDS ORDERED: SODIUM CHLORIDE 250 ML IV PRN (08:30)
[2022-09-11] MEDS: CALCIUM ACETATE 667 MG CAPSULE (FP) PO SCH ×3 (08:46→17:38)
[2022-09-11 09:01] LABS: BASO % 1.6 % (0-2.0); EOS % 1.9 % (0-4.5); HEMATOCRIT 22.1 % (35.4-49); HEMOGLOBIN 7.3 GM/dL (11.7-16.9); MCH 30.5 pg (25.7-33.7); MCHC 33.2 g/dl (32.0-35.9); MEAN CELL VOLUME 91.7 fl (80-96); MEAN PLT VOLUME 7.9 fl (7.5-11.1); MONO % 8.6 % (3.8-10.2); NEUT % 57.9 % (42.8-82.8); PLATELET COUNT 172 10^3/uL (134-434); RDW 17.8 % (11.9-15.9); WHITE BLOOD COUNT 8.8 K/mm3 (4.0-10.0)
[2022-09-11 09:19] LABS: CHLORIDE 96 mmol/L (98-107); SODIUM 134 mmol/L (136-145)
[2022-09-11 09:21] LABS: CALCIUM 8.1 mg/dL (8.5-10.1)
[2022-09-11 09:22] LABS: ANION GAP 9 MMOL/L (8-16); BLOOD UREA NITROGEN 54.8 mg/dL (7-18); CO2 29 mmol/L (21-32); GLUCOSE,RANDOM 111 mg/dL (74-106); MAGNESIUM 2.1 mg/dL (1.8-2.4)
[2022-09-11 09:25] LABS: SGOT/AST 43 U/L (15-37); SGPT/ALT 24 U/L (13-61)
[2022-09-11 09:27] LABS: BILIRUBIN,TOTAL 3.9 mg/dL (0.2-1); TOT PROT 4.8 g/dl (6.4-8.2)
[2022-09-11 09:28] LABS: ALK PHOS 82 U/L (45-117)
[2022-09-11] MEDS ORDERED: EPOETIN ALFA-EPBX 10,000 UNIT/ML VIAL SQ ONE (09:30)
[2022-09-11 09:34] LABS: CREATININE 8.3 mg/dL (0.55-1.3)
[2022-09-11] MEDS: FUROSEMIDE 40 MG TABLET (FP) PO SCH (11:41)
[2022-09-11] MEDS: metoPROLOL SUCCINATE 25 MG TAB.SR.24H (FP) PO SCH ×2 (11:51→22:51)
[2022-09-11] MEDS: SPIRONOLACTONE 25 MG TABLET PO SCH ×2 (11:51→22:50)
[2022-09-11] MEDS: VITAMIN B COMP W-C 1 EA TABLET (NEPHRO-VITE) PO SCH (11:52)
[2022-09-11] MEDS: THIAMINE HCL 100 MG TABLET (FP) PO SCH (11:52)
[2022-09-11] MEDS: FOLIC ACID 1 MG TABLET (FP) PO SCH (11:52)
[2022-09-11] MEDS: LACTULOSE 20 GM/30 ML UDC (FOR ORAL USE ONLY) PO SCH ×2 (11:53→22:50)
[2022-09-12] MEDS: HEPARIN NA (PORCINE) 5,000 UNITS/ML 1ML VIAL SQ SCH ×3 (05:57→23:08)
[2022-09-12] MEDS: RIFAXIMIN 550 MG TABLET PO SCH ×3 (05:57→23:08)
[2022-09-12] MEDS: CALCIUM ACETATE 667 MG CAPSULE (FP) PO SCH ×3 (08:28→17:57)
[2022-09-12] MEDS: FOLIC ACID 1 MG TABLET (FP) PO SCH (09:28)
[2022-09-12] MEDS: SPIRONOLACTONE 25 MG TABLET PO SCH ×2 (09:28→23:08)
[2022-09-12] MEDS: THIAMINE HCL 100 MG TABLET (FP) PO SCH (09:28)
[2022-09-12] MEDS: metoPROLOL SUCCINATE 25 MG TAB.SR.24H (FP) PO SCH ×2 (09:28→23:09)
[2022-09-12] MEDS: VITAMIN B COMP W-C 1 EA TABLET (NEPHRO-VITE) PO SCH (09:28)
[2022-09-12] MEDS: LACTULOSE 20 GM/30 ML UDC (FOR ORAL USE ONLY) PO SCH ×2 (09:29→23:06)
[2022-09-12] MEDS: FUROSEMIDE 40 MG TABLET (FP) PO SCH (09:29)
[2022-09-12] MEDS: MIDODRINE HCL 5 MG TABLET PO SCH ×3 (09:30→17:57)
[2022-09-12 10:45] LABS: INR 1.15 (0.83-1.09); PROTHROMBIN TIME (PATIENT) 13.3 SEC (9.7-13.0)
[2022-09-12 10:46] LABS: BASO % 1.3 % (0-2.0); EOS % 1.7 % (0-4.5); MCH 30.9 pg (25.7-33.7); MCHC 33.5 g/dl (32.0-35.9); MEAN CELL VOLUME 92.2 fl (80-96); MEAN PLT VOLUME 8.5 fl (7.5-11.1); MONO % 10.9 % (3.8-10.2); NEUT % 56.1 % (42.8-82.8); PLATELET COUNT 118 10^3/uL (134-434); RBC 2.93 M/mm3 (4.00-5.60); RDW 17.1 % (11.9-15.9); WHITE BLOOD COUNT 9.1 K/mm3 (4.0-10.0)
[2022-09-12 11:05] LABS: ALBUMIN 2.2 g/dl (3.4-5.0); MAGNESIUM 2.1 mg/dL (1.8-2.4)
[2022-09-12 11:08] LABS: BLOOD UREA NITROGEN 38.4 mg/dL (7-18); CREATININE 6.2 mg/dL (0.55-1.3)
[2022-09-12 11:10] LABS: BILIRUBIN,TOTAL 4.2 mg/dL (0.2-1); TOT PROT 5.1 g/dl (6.4-8.2)
[2022-09-12] MEDS ORDERED: POTASSIUM CHLORIDE TABS 20 MEQ TABLET.ER (FP) PO ONE (14:44)
[2022-09-13] MEDS: HEPARIN NA (PORCINE) 5,000 UNITS/ML 1ML VIAL SQ SCH ×3 (05:59→22:32)
[2022-09-13] MEDS: RIFAXIMIN 550 MG TABLET PO SCH ×3 (06:00→22:32)
[2022-09-13] MEDS ORDERED: SODIUM CHLORIDE 250 ML IV PRN (07:25)
[2022-09-13] MEDS: MIDODRINE HCL 5 MG TABLET PO SCH ×4 (08:10→17:41)
[2022-09-13] MEDS: CALCIUM ACETATE 667 MG CAPSULE (FP) PO SCH ×3 (08:10→17:41)
[2022-09-13] MEDS: ALBUMIN HUMAN 25% 12.5 GM/50 ML VIAL IV SCH ×2 (09:00→09:51)
[2022-09-13 10:36] LABS: EOS % 1.9 % (0-4.5); HEMATOCRIT 26.9 % (35.4-49); LYMPH % 27.6 % (8-40); MCHC 33.3 g/dl (32.0-35.9); MEAN PLT VOLUME 7.9 fl (7.5-11.1); MONO % 10.9 % (3.8-10.2); NEUT % 57.6 % (42.8-82.8); PLATELET COUNT 165 10^3/uL (134-434); RBC 2.89 M/mm3 (4.00-5.60); RDW 17.5 % (11.9-15.9)
[2022-09-13 10:37] LABS: INR 1.17 (0.83-1.09); PROTHROMBIN TIME (PATIENT) 13.5 SEC (9.7-13.0)
[2022-09-13 10:52] LABS: CHLORIDE 99 mmol/L (98-107); SODIUM 135 mmol/L (136-145)
[2022-09-13 10:56] LABS: ALBUMIN 2.1 g/dl (3.4-5.0); ANION GAP 10 MMOL/L (8-16); BLOOD UREA NITROGEN 46.4 mg/dL (7-18); CALCIUM 8.3 mg/dL (8.5-10.1); CO2 26 mmol/L (21-32); GLUCOSE,RANDOM 99 mg/dL (74-106); MAGNESIUM 2.1 mg/dL (1.8-2.4)
[2022-09-13 10:59] LABS: SGPT/ALT 26 U/L (13-61)
[2022-09-13 11:00] LABS: SGOT/AST 42 U/L (15-37)
[2022-09-13 11:01] LABS: BILIRUBIN,TOTAL 3.8 mg/dL (0.2-1); TOT PROT 5.1 g/dl (6.4-8.2)
[2022-09-13 11:02] LABS: ALK PHOS 83 U/L (45-117)
[2022-09-13 11:04] LABS: CREATININE 7.6 mg/dL (0.55-1.3)
[2022-09-13] MEDS: FOLIC ACID 1 MG TABLET (FP) PO SCH (13:02)
[2022-09-13] MEDS: LACTULOSE 20 GM/30 ML UDC (FOR ORAL USE ONLY) PO SCH ×2 (13:02→22:32)
[2022-09-13] MEDS: THIAMINE HCL 100 MG TABLET (FP) PO SCH (13:02)
[2022-09-13] MEDS: SPIRONOLACTONE 25 MG TABLET PO SCH ×2 (13:02→22:32)
[2022-09-13] MEDS: VITAMIN B COMP W-C 1 EA TABLET (NEPHRO-VITE) PO SCH (13:02)
[2022-09-13] MEDS: FUROSEMIDE 40 MG TABLET (FP) PO SCH (13:03)
[2022-09-13] MEDS: metoPROLOL SUCCINATE 25 MG TAB.SR.24H (FP) PO SCH ×2 (13:03→22:32)
[2022-09-14] MEDS: RIFAXIMIN 550 MG TABLET PO SCH ×3 (06:42→21:49)
[2022-09-14] MEDS: HEPARIN NA (PORCINE) 5,000 UNITS/ML 1ML VIAL SQ SCH ×3 (06:42→21:50)
[2022-09-14] MEDS: CALCIUM ACETATE 667 MG CAPSULE (FP) PO SCH ×3 (08:25→17:42)
[2022-09-14 09:17] LABS: INR 1.13 (0.83-1.09); PROTHROMBIN TIME (PATIENT) 13.1 SEC (9.7-13.0)
[2022-09-14 09:23] LABS: BASO % 2.2 % (0-2.0); EOS % 1.6 % (0-4.5); HEMATOCRIT 29.2 % (35.4-49); HEMOGLOBIN 9.7 GM/dL (11.7-16.9); MCH 30.9 pg (25.7-33.7); MCHC 33.1 g/dl (32.0-35.9); MEAN CELL VOLUME 93.4 fl (80-96); MEAN PLT VOLUME 7.8 fl (7.5-11.1); MONO % 12.2 % (3.8-10.2); PLATELET COUNT 102 10^3/uL (134-434); RBC 3.12 M/mm3 (4.00-5.60); RDW 18.1 % (11.9-15.9); WHITE BLOOD COUNT 7.8 K/mm3 (4.0-10.0)
[2022-09-14 10:01] LABS: CALCIUM 8.2 mg/dL (8.5-10.1); MAGNESIUM 2.1 mg/dL (1.8-2.4)
[2022-09-14 10:03] LABS: BLOOD UREA NITROGEN 30.7 mg/dL (7-18)
[2022-09-14 10:06] LABS: CREATININE 5.7 mg/dL (0.55-1.3)
[2022-09-14 10:07] LABS: BILIRUBIN,TOTAL 4.2 mg/dL (0.2-1); TOT PROT 5.7 g/dl (6.4-8.2)
[2022-09-14 10:17] LABS: ALBUMIN 2.5 g/dl (3.4-5.0)
[2022-09-14] MEDS: LACTULOSE 20 GM/30 ML UDC (FOR ORAL USE ONLY) PO SCH ×2 (10:24→21:49)
[2022-09-14] MEDS: VITAMIN B COMP W-C 1 EA TABLET (NEPHRO-VITE) PO SCH (10:25)
[2022-09-14] MEDS: MIDODRINE HCL 5 MG TABLET PO SCH ×3 (10:25→17:42)
[2022-09-14] MEDS: metoPROLOL SUCCINATE 25 MG TAB.SR.24H (FP) PO SCH ×2 (10:25→21:50)
[2022-09-14] MEDS: THIAMINE HCL 100 MG TABLET (FP) PO SCH (10:25)
[2022-09-14] MEDS: FOLIC ACID 1 MG TABLET (FP) PO SCH (10:25)
[2022-09-14] MEDS: FUROSEMIDE 40 MG TABLET (FP) PO SCH (10:25)
[2022-09-14] MEDS: SPIRONOLACTONE 25 MG TABLET PO SCH ×2 (10:25→21:50)
[2022-09-15] MEDS: HEPARIN NA (PORCINE) 5,000 UNITS/ML 1ML VIAL SQ SCH (05:29)
[2022-09-15] MEDS: RIFAXIMIN 550 MG TABLET PO SCH ×2 (05:29→13:24)
[2022-09-15] MEDS: CALCIUM ACETATE 667 MG CAPSULE (FP) PO SCH ×3 (08:19→17:01)
[2022-09-15] MEDS: THIAMINE HCL 100 MG TABLET (FP) PO SCH (09:19)
[2022-09-15] MEDS: metoPROLOL SUCCINATE 25 MG TAB.SR.24H (FP) PO SCH ×2 (09:19→22:09)
[2022-09-15] MEDS: FOLIC ACID 1 MG TABLET (FP) PO SCH (09:19)
[2022-09-15] MEDS: FUROSEMIDE 40 MG TABLET (FP) PO SCH (09:20)
[2022-09-15] MEDS: MIDODRINE HCL 5 MG TABLET PO SCH ×3 (09:20→17:11)
[2022-09-15] MEDS: SPIRONOLACTONE 25 MG TABLET PO SCH ×2 (09:20→22:08)
[2022-09-15] MEDS: LACTULOSE 20 GM/30 ML UDC (FOR ORAL USE ONLY) PO SCH ×2 (09:20→22:10)
[2022-09-15] MEDS: VITAMIN B COMP W-C 1 EA TABLET (NEPHRO-VITE) PO SCH (09:20)
[2022-09-15] MEDS ORDERED: SODIUM CHLORIDE 250 ML IV PRN (10:18)
[2022-09-15] MEDS: ALBUMIN HUMAN 25% 12.5 GM/50 ML VIAL IV SCH ×4 (10:30→12:00)
[2022-09-15] MEDS ORDERED: EPOETIN ALFA-EPBX 10,000 UNIT/ML VIAL SQ ONE (10:30)
[2022-09-15] MEDS ORDERED: INSULIN (NOVOLOG) ASPART 100 UNITS/ML 10ML VIAL ONE (11:33)
[2022-09-15 11:37] LABS: EOS % 2.2 % (0-4.5); HEMOGLOBIN 9.2 GM/dL (11.7-16.9); LYMPH % 28.2 % (8-40); MCH 30.6 pg (25.7-33.7); MCHC 32.8 g/dl (32.0-35.9); MEAN CELL VOLUME 93.4 fl (80-96); MEAN PLT VOLUME 8.1 fl (7.5-11.1); MONO % 11.1 % (3.8-10.2); NEUT % 56.5 % (42.8-82.8); PLATELET COUNT 151 10^3/uL (134-434); RDW 18.1 % (11.9-15.9); WHITE BLOOD COUNT 9.2 K/mm3 (4.0-10.0)
[2022-09-15 11:41] LABS: INR 1.1 (0.83-1.09); PROTHROMBIN TIME (PATIENT) 12.8 SEC (9.7-13.0)
[2022-09-15 12:04] LABS: ALBUMIN 2.2 g/dl (3.4-5.0); CALCIUM 8.2 mg/dL (8.5-10.1)
[2022-09-15 12:06] LABS: BLOOD UREA NITROGEN 43.6 mg/dL (7-18); MAGNESIUM 2.3 mg/dL (1.8-2.4)
[2022-09-15 12:08] LABS: BILIRUBIN,TOTAL 3.5 mg/dL (0.2-1); TOT PROT 5.3 g/dl (6.4-8.2)
[2022-09-15] MEDS: MELATONIN 5 MG TABLETS PO PRN (22:11)
[2022-09-16] MEDS ORDERED: PANTOPRAZOLE SODIUM 40 MG VIAL IVPUSH ONE (02:14)
[2022-09-16] MEDS: CALCIUM ACETATE 667 MG CAPSULE (FP) PO SCH ×3 (08:10→17:15)
[2022-09-16] MEDS: VITAMIN B COMP W-C 1 EA TABLET (NEPHRO-VITE) PO SCH (09:16)
[2022-09-16] MEDS: FOLIC ACID 1 MG TABLET (FP) PO SCH (09:16)
[2022-09-16] MEDS: MIDODRINE HCL 5 MG TABLET PO SCH ×3 (09:16→17:15)
[2022-09-16] MEDS: THIAMINE HCL 100 MG TABLET (FP) PO SCH (09:17)
[2022-09-16] MEDS ORDERED: FENTANYL CITRATE/PF 50 MCG/ML VIAL ONE (11:29)
[2022-09-16 13:41] LABS: BF WBC & OTHER NUCLEATED CELLS 268 /mm3
[2022-09-16 14:16] LABS: BODY FLUID MACROPHAGES 78 %; BODY FLUID MESOTHELIAL 10 %
[2022-09-16] MEDS: LACTULOSE 20 GM/30 ML UDC (FOR ORAL USE ONLY) PO SCH ×2 (15:18→21:23)
[2022-09-16] MEDS: SPIRONOLACTONE 25 MG TABLET PO SCH ×2 (15:18→21:22)
[2022-09-16] MEDS: FUROSEMIDE 40 MG TABLET (FP) PO SCH (15:19)
[2022-09-16] MEDS: metoPROLOL SUCCINATE 25 MG TAB.SR.24H (FP) PO SCH ×2 (15:20→21:23)
[2022-09-16] MEDS ORDERED: INSULIN (NOVOLOG) ASPART 100 UNITS/ML 10ML VIAL ONE ×2 (16:08→16:53)
[2022-09-16] MEDS ORDERED: LACTOBACILLUS ACIDOPHILUS 1 TABLET PO ONE (20:18)
[2022-09-17] MEDS: CALCIUM ACETATE 667 MG CAPSULE (FP) PO SCH ×2 (08:45→12:11)
[2022-09-17] MEDS: MIDODRINE HCL 5 MG TABLET PO SCH ×3 (08:46→14:45)
[2022-09-17] MEDS: FOLIC ACID 1 MG TABLET (FP) PO SCH (09:07)
[2022-09-17] MEDS: VITAMIN B COMP W-C 1 EA TABLET (NEPHRO-VITE) PO SCH (09:07)
[2022-09-17] MEDS: THIAMINE HCL 100 MG TABLET (FP) PO SCH (09:07)
[2022-09-17] MEDS: LACTULOSE 20 GM/30 ML UDC (FOR ORAL USE ONLY) PO SCH (09:08)
[2022-09-17] MEDS: SPIRONOLACTONE 25 MG TABLET PO SCH (09:34)
[2022-09-17] MEDS: FUROSEMIDE 40 MG TABLET (FP) PO SCH (09:34)
[2022-09-17] MEDS: metoPROLOL SUCCINATE 25 MG TAB.SR.24H (FP) PO SCH (09:34)
[2022-09-17] MEDS ORDERED: LACTOBACILLUS ACIDOPHILUS 1 TABLET PO SCH (10:00)
[2022-09-17 12:41] LABS: BASO % 1.3 % (0-2.0); EOS % 1.5 % (0-4.5); HEMATOCRIT 27.3 % (35.4-49); LYMPH % 23.9 % (8-40); MCH 30.9 pg (25.7-33.7); MEAN CELL VOLUME 93.7 fl (80-96); MEAN PLT VOLUME 8.8 fl (7.5-11.1); MONO % 10.3 % (3.8-10.2); PLATELET COUNT 134 10^3/uL (134-434); RBC 2.92 M/mm3 (4.00-5.60); RDW 18.1 % (11.9-15.9); WHITE BLOOD COUNT 8.8 K/mm3 (4.0-10.0)
[2022-09-17] MEDS ORDERED: SODIUM CHLORIDE 250 ML IV PRN (12:44)
[2022-09-17] MEDS ORDERED: ALBUMIN HUMAN 25% 12.5 GM/50 ML VIAL IVPB SCH (12:45)
[2022-09-17 13:06] LABS: BLOOD UREA NITROGEN 40.8 mg/dL (7-18); MAGNESIUM 2.2 mg/dL (1.8-2.4)
[2022-09-17 13:07] LABS: BODY FLUID ALBUMIN 1.3 g/dL (Not Estab.)
[2022-09-17 13:09] LABS: CREATININE 6.9 mg/dL (0.55-1.3)
[2022-09-17 13:10] LABS: BILIRUBIN,TOTAL 2.9 mg/dL (0.2-1)
[2022-09-17 13:11] LABS: TOT PROT 5.1 g/dl (6.4-8.2)
[2022-09-17 14:17] VITALS: BP 142/68; PULSE 56; RESP 16; TEMP 97.9
== END 2022-09-17 16:23 | DRG 432 ==
LOC: JER 20:35 → JERBED 08-25 02:03 → J6S 08-25 08:57 → JICU 08-30 04:23 → J4W 09-04 00:03 → J7W 09-06 17:19 → J4W 09-06 21:11 → J6S 09-10 22:11
PROVIDERS: ADMIT Internal Medicine; ATTEND Internal Medicine
PROC: 0Y9N0ZZ Drainage of Left Foot, Open Approach (ICD-10-PCS; principal; 2022-08-31 10:00)
PROC: 0W9G3ZX Drainage of Peritoneal Cavity, Percutaneous Approach, Diagnostic (ICD-10-PCS; 2022-09-01)
PROC: 0W9G3ZX Drainage of Peritoneal Cavity, Percutaneous Approach, Diagnostic (ICD-10-PCS; 2022-09-06)
PROC: 0W9G3ZX Drainage of Peritoneal Cavity, Percutaneous Approach, Diagnostic (ICD-10-PCS; 2022-09-10)
PROC: 30233N1 Transfusion of Nonautologous Red Blood Cells into Peripheral Vein, Percutaneous Approach (ICD-10-PCS; 2022-09-11)
PROC: 0W9G3ZX Drainage of Peritoneal Cavity, Percutaneous Approach, Diagnostic (ICD-10-PCS; 2022-09-16)
PROC: 5A1D70Z Performance of Urinary Filtration, Intermittent, Less than 6 Hours Per Day (ICD-10-PCS; 2022-09-17)
DX: K70.31 Alcoholic cirrhosis of liver with ascites (principal); I50.43 Acute on chronic combined systolic (congestive) and diastolic (congestive) heart failure; N18.6 End stage renal disease; L03.116 Cellulitis of left lower limb; D68.9 Coagulation defect, unspecified; I13.2 Hypertensive heart and chronic kidney disease with heart failure and with stage 5 chronic kidney disease, or end stage renal disease; N17.9 Acute kidney failure, unspecified; I48.92 Unspecified atrial flutter; F41.8 Other specified anxiety disorders; D64.9 Anemia, unspecified; I95.9 Hypotension, unspecified; I48.91 Unspecified atrial fibrillation; E66.9 Obesity, unspecified; Z68.30 Body mass index [BMI] 30.0-30.9, adult; M79.673 Pain in unspecified foot; Z93.1 Gastrostomy status; E87.70 Fluid overload, unspecified; S90.32XA Contusion of left foot, initial encounter; X58.XXXA Exposure to other specified factors, initial encounter; Y93.9 Activity, unspecified; Y92.89 Other specified places as the place of occurrence of the external cause; Y99.9 Unspecified external cause status; Z93.0 Tracheostomy status; E11.9 Type 2 diabetes mellitus without complications; Z99.2 Dependence on renal dialysis
CPT/HCPCS: 0241U-QW; 36415; 36430; 49418; 71045-TC-FY; 73718-TC-LT; 74177-TC; 76700-TC; 76882-TC-RT-FY; 76942-TC; 80048; 80053; 80076; 82042; 82140; 82150; 82945; 82962; 83615; 83690; 83735; 83986; 84100; 84157; 84300; 84478; 84484; 85025; 85027; 85610; 85730; 86140; 86704; 86803; 86850; 86900; 86901; 86922; 87070; 87075; 87102; 87116; 87205; 87206; 87210; 87340; 87517; 88108; 88305-TC; 93005; 93010; 93306-TC; 97116-GP; 97162-GP; 99285-25; C9803-CS; J1644; P9047; P9058; Q5106; U0003; U0005